=== PATIENT | female | born 1940 | race Caucasian/White ===

== ENCOUNTER 2020-02-23 10:14 | Outpatient (REF) | payer MEDICARE, SELFPAY ==
[2020-02-23 11:08] LABS: MANUAL DIFF FLAG NO
[2020-02-23 11:18] LABS: Basophils Percent Auto 0.2 % (0-2); Eosinophils Percent Auto 0.2 % (0-4); Hemoglobin 14.4 g/dl (12.0-16.0); Imm Gran Abs Auto 0.01 X10*3/uL (0.00-0.03); Imm Gran Pct Auto 0.2 % (0.0-0.4); Lymphocytes Percent Auto 31.6 % (20-40); Mean Corpuscular Hemoglobin 29.8 pg (27.0-33.0); Mean Corpuscular Volume 93.2 fL (80-98); Monocytes Absolute Auto 0.4 X10*3/uL (0.1-1.2); Monocytes Percent Auto 5.9 % (2-11); Neutrophils Percent Auto 61.9 % (45-73); Platelet Count 274 X10*3/uL (160-400); Red Blood Count 4.83 X10*6/uL (4.20-5.50); White Blood Count 6.4 X10*3/uL (4.8-10.8)
[2020-02-23 11:55] LABS: Alanine Aminotransferase 16 U/L (0-31); Albumin Level 4.5 g/dL (3.5-5.0); Alkaline Phosphatase 73 U/L (39-117); Anion Gap 12 (12-20); Aspartate Amino Transferase 18 U/L (5-31); Bilirubin Total 0.6 mg/dL (0.0-1.0); Blood Urea Nitrogen 19 mg/dL (9-16); Calcium 9.7 mg/dL (8.4-10.2); Carbon Dioxide 28 mmol/L (22-29); Chloride 105 mmol/L (96-108); Cholesterol 245 mg/dL; Estimated Glomerular Filt Rate > 60; Glucose Fasting 111 mg/dL (60-99); HDL Cholesterol 74 mg/dL; LDL Cholesterol Calculated 158 mg/dl; Potassium 4.3 mmol/l (3.3-5.1); Sodium 141 mmol/L (135-145); Total Protein 6.8 g/dL (6.5-8.0); Triglycerides 66 mg/dL
[2020-02-23 12:01] LABS: Thyroid Stimulating Hormone 0.82 uIU/mL (0.32-4.0)
== END 2020-02-23 10:15 | disposition home or self-care (01) ==
LOC: HO.LAB 10:14
PROVIDERS: PCP Internal Medicine; Visit Provider Internal Medicine
DX: Z00.00 Encounter for general adult medical examination without abnormal findings (principal); E11.9 Type 2 diabetes mellitus without complications; E03.9 Hypothyroidism, unspecified
CPT/HCPCS: 36415; 80053; 80061; 84443; 85025

== ENCOUNTER 2020-09-04 10:47 | Outpatient (REF) | payer MEDICARE, SELFPAY ==
--- NOTE | 2020-09-05 08:54 | MHC.AU.ANO ---
Adult Audiological Evaluation Date of Visit: 09/04/20 Home Health Rn Used: Not Applicable Reason for Appointment: Audiologic evaluation due to family's question of decreased hearing ability. Pamela reports she sometimes increases the volume of the television and her children comments she does not always understand speech properly. Does patient feel they have a hearing loss?: Unsure If Yes, Which Ear?: None Reported Has hearing been tested previously?: No Hearing Handicap Inventory: HHIE SCORE: 8 Based on HHIE score, patient has: No perceived hearing handicap Ear History: Family History of Hearing Loss?: Yes: Mother Ear used on the phone: Right Ear History of occupational noise exposure?: None reported History: History: No Medical History: Medical History: Unremarkable Medical History Medication List: Preservision Otoscopy: Right Ear: Small amount of non-occluding cerumen. Able to visualize tympanic membrane Left Ear: Small amount of non-occluding cerumen. Able to visualize tympanic membrane Tympanometry: Tympanometry performed due to: To assess integrity of the middle ear system Right Ear: Normal Middle Ear System (Type A) Left Ear: Normal Middle Ear System (Type A) Otoacoustic Emissions Frequency Range Used: 1.6-8 kHz Right Ear Results: Absent Emissions Analysis: Reduced/Absent emissions suggest cochlear dysfunction Left Ear Results: Absent Emissions Analysis: Reduced/Absent emissions suggest cochlear dysfunction Hearing Evaluation: Transducer(s) Used: Insert Earphones Bone Conduction Method: Conventional Audiometry Stimuli Used: Pure Tones Right Ear: Description of Hearing: Normal hearing at 250 Hz dropping to a moderately-severe sensorineural hearing loss at 2082-0254 Hz Left Ear: Description of Hearing: Normal hearing at 250 Hz dropping to a moderately-severe sensorineural hearing loss at 8534-4843 Hz Speech Recognition Threshold (SRT): Method Used: Monitored Live Voice Stimuli Used: Spondee Words Right Ear: 30 dB HL Left Ear: 30 dB HL Word Discrimination: Method: Recorded Lists Word Lists Used: NU-6 Right Ear: 84% at 70 dB HL Left Ear: 60% at 70 dB HL 80% at 80 dB HL QuickSIN: Binaural Quick SIN Test: 12 dB SNR Loss suggesting Pamela experiences a moderate degree of difficulty understanding speech with increasing levels of background noise Interpretation of Results: With the type and degree of Pamela's bilateral hearing loss she is likely able to hear , but have more difficulty with speech discrimination ability. This difficulty increases when background noise is present and when the person speaking is not facing Pamela or at a distance. Recommendations: 1) Discussed and provided a handout regarding Communication Strategies to share with the family and improve Pamela's ability to understand speech better. If having difficulty understanding the television, being within 6 feet from the television may help, or trying speakers connected to the television and placed next to Pamela's seat may be beneficial. 2) Discussed that based on Pamela's hearing test results, she is a candidate for binaural hearing aids. Pamela reports she feels she is not ready for amplification at this time and would like to try the communication strategies first. If interested in trying hearing aids within the next 6 months, she is advised to contact her insurance for covered hearing aid providers. 3) Audiologic re-evaluation is advised in one year. Will send a reminder card. Diagnosis: Primary Diagnosis: H90.3 Bilateral Sensorineural Hearing Loss Services Performed: Comprehensive Audiological Evaluation (CPT 47785) Diagnostic Otoacoustic Emissions (CPT 82683, 26+TC) Tympanometry (CPT 90284) Signature: Provider: Julianna Barrett, CCC-A
== END 2020-09-04 10:48 | disposition home or self-care (01) ==
LOC: HO.SH 10:47
PROVIDERS: Visit Provider Internal Medicine
DX: H90.3 Sensorineural hearing loss, bilateral (principal)
CPT/HCPCS: 92557; 92567; 92588

== ENCOUNTER 2020-12-25 08:21 | Day surgery (SDC) | payer MEDICARE, SELFPAY ==
[2020-12-15 15:17] VITALS: BMI 21.8
--- NOTE | 2020-12-21 13:48 | MHC.SHP ---
Pre-Procedural Eval Section A Date of Service: 12/21/20 The patient is an INPATIENT: No Changes since office visit: No Cold of Flu in the past 2 weeks, No New Medical Problems, No Changes in Medication and No Patient answered all questions The History & Physical has been completed within 30 days and I have reviewed it.: Yes Section B Chief Complaint: cataract right eye Allergies: Allergies Allergy/AdvReac Type Severity Reaction Status Date / Time No Known Allergies Allergy Mild N/A Verified 12/19/20 14:07 Plan Diagnosis/Plan: Unchanged I have reviewed the history and physical and performed a pertinent physical examination on my patient. No changes have occurred unless specified.
--- NOTE | 2020-12-22 13:26 | P.CONAN_ITS ---
Documented by User: Lupe Kennedy NP 12/22/20 13:26 HPI - Anesthesia Eval Consult details Narrative: 80yo F for Right Cataract Extraction IOL Insertion PCP cleared No prev cataract on record PMFSH Active Problems Active Problems: All Active Problems (Updated 12/19/20 @ 14:23 by Scott Krueger MD) Preop exam for internal medicine (Acute) Physical exam (Acute) Past Medical History Medical History COVID-19 vaccine series completed No pertinent past medical history Personal history of tuberculosis Family History Family History Father Past heart attack Mother Pneumonia Paternal Aunt Breast cancer Sister Breast cancer Surgical History Surgical History H/O rectal polypectomy History of hysterectomy Hx of colonoscopy Social History Social History Housing: House Are you a primary lead caregiver to a significant other at home: Yes (Spouse has Alzheimers) Do you presently have visiting nurse or other home services: No Alcohol intake: current Alcohol intake frequency: holidays/special occasions only Patient Tobacco Use Status: Never used Tobacco e-Cigarette/Vaping Use: Never Used Second Hand Smoke Exposure: No Use of substances other than those prescribed or required for medical reasons: No Have you been hit, kicked, punched, or otherwise hurt by someone within the past year? If so, by whom?: No Are you DNR?: No Advance Directives: No Advance Directives Information Provided: No Advance Directives on File: No Recently lost weight without trying: No Eating poorly because of decreased appetite: No Nutrition Risks: No Nutritional Risk service: No Current occupational status: retired Cognitive needs: No Hearing needs: No Vision needs: No Meds Allergies Allergy/AdvReac Type Severity Reaction Status Date / Time No Known Allergies Allergy Mild N/A Verified 12/25/20 09:37 Home Medications Medication Instructions Recorded Confirmed Last Taken Type vitamins A,C,J-xjlo-kldcnx 14,320 1 cap PO BID 12/15/20 12/15/20 Unknown History unit-226 mg-200 unit capsule (PreserVision AREDS) Exam Exam Date and Time: December 22, 2020 1326 Height,Weight and Vital Signs: Height 5 ft 4 in Weight 57.606 kg Assessment and Plan Assessment Anesthesia Assessment: Chart Reviewed Documented by User: Crystal Metz MD 12/25/20 09:48 [facility] Past Medical History Medical History COVID-19 vaccine series completed No pertinent past medical history Personal history of tuberculosis Family History Family History Father Past heart attack Mother Pneumonia Paternal Aunt Breast cancer Sister Breast cancer Surgical History Surgical History H/O rectal polypectomy History of hysterectomy Hx of colonoscopy Social History Social History Housing: House Are you a primary lead caregiver to a significant other at home: Yes (Spouse has Alzheimers) Do you presently have visiting nurse or other home services: No Alcohol intake: current Alcohol intake frequency: holidays/special occasions only Patient Tobacco Use Status: Never used Tobacco e-Cigarette/Vaping Use: Never Used Second Hand Smoke Exposure: No Use of substances other than those prescribed or required for medical reasons: No Have you been hit, kicked, punched, or otherwise hurt by someone within the past year? If so, by whom?: No Are you DNR?: No Advance Directives: No Advance Directives Information Provided: No Advance Directives on File: No Recently lost weight without trying: No Eating poorly because of decreased appetite: No Nutrition Risks: No Nutritional Risk service: No Current occupational status: retired Cognitive needs: No Hearing needs: No Vision needs: No Meds Allergies Allergy/AdvReac Type Severity Reaction Status Date / Time No Known Allergies Allergy Mild N/A Verified 12/25/20 09:37 Home Medications Medication Instructions Recorded Confirmed Last Taken Type vitamins A,C,E-covi-udcfrc 14,320 1 cap PO BID 12/15/20 12/15/20 Unknown History unit-226 mg-200 unit capsule (PreserVision AREDS) Exam Airway Mallampati Class: II TM Dist: >3cm Neck ROM: Full
[2020-12-25 09:42] VITALS: BP 161/60; PULSE 66; RESP 16; TEMP 36.1; O2SAT 97
[2020-12-25] MEDS: Lactated Ringers 500 ML 50 ML IV (10:04)
[2020-12-25] MEDS: Tetracaine HCl/PF 0.5% Oph Sol 4 ML DROPS 1 DROP EYE-RIGHT (10:10)
[2020-12-25] MEDS: Tropicamide 1 % Ophth Sol 3 ML BTL 1 DROP EYE-RIGHT ×3 (10:11→10:19)
[2020-12-25] MEDS: Phenylephrine HCL 2.5% Oph SoL 2 ML BOTTLE 1 DROP EYE-RIGHT ×3 (10:13→10:21)
--- NOTE | 2020-12-25 10:57 | HO.PNOPHT ---
Ophthalmology Procedure Procedure Date of Service: 12/25/20 Ophthalmology Viscoelastic: Healon Duet Dual Pack Pro Ophthalmology Lenses: TECNIS [id number] (16.5) Procedure Notes: PREOPERATIVE DIAGNOSIS: Decreased visual acuity right eye secondary to cataract POSTOPERATIVE DIAGNOSIS: Same PROCEDURE: Right cataract extraction with intraocular lens insertion SURGEON: Javy Rockwell M.D. ANESTHESIA: Topical/MAC ESTIMATED BLOOD LOSS: None COMPLICATIONS: None After obtaining informed consent, the patient was brought to the operating room suite and placed in the supine position. After adequate sedation per anesthesia, topical drops of Tetracaine were given to the right eye. The eye was then prepped and draped in the usual sterile fashion. The operating room microscope was then positioned over the operative eye and a lid speculum placed. A paracentesis was created. Viscoelastic was then instilled into the anterior chamber. A three plane incision was then created temporally, utilizing a 2.85 mm keratome. Capsulotomy forceps were then utilized to create a circular tear capsulotomy. Hydrodissection and hydrodelineation were carried out until adequate mobilization of the nucleus occurred. Phacoemulsification was then utilized to remove the dense central nucleus followed by removal of the cortical material utilizing the automated aspiration irrigation unit. Viscoelastic was instilled into the posterior capsular bag followed by placement of a posterior chamber intraocular lens without difficulty. The residual Viscoelastic was then removed utilizing the automated IA machine. The wound was checked and found to be watertight. The patient tolerated the procedure well and the lid speculum was removed. Intracameral injection of Vigamox 0.1 mL followed by a subtenon injection of Kenalog-40 0.2 mL were administered. The patient will be seen in the a.m.
[2020-12-25 11:20] VITALS: BP 136/54; PULSE 62; RESP 12; TEMP 36.1; O2SAT 100
== END 2020-12-25 11:35 | disposition home or self-care (01) ==
PROVIDERS: PCP Internal Medicine; Visit Provider Ophthalmology
PROC: (CPT 66985; principal; 2020-12-25 10:50)
DX: H25.811 Combined forms of age-related cataract, right eye (principal); H54.7 Unspecified visual loss; H35.3111 Nonexudative age-related macular degeneration, right eye, early dry stage; Z86.11 Personal history of tuberculosis
CPT/HCPCS: 66984; J2250; J3010; J3300; V2632

== ENCOUNTER 2021-01-08 08:29 | Day surgery (SDC) | payer MEDICARE, SELFPAY ==
[2020-12-15 15:22] VITALS: BMI 21.8
--- NOTE | 2021-01-05 08:23 | MHC.SHP ---
Pre-Procedural Eval Section A Date of Service: 01/05/21 The patient is an INPATIENT: No Changes since office visit: No Cold of Flu in the past 2 weeks, No New Medical Problems, No Changes in Medication and No Patient answered all questions The History & Physical has been completed within 30 days and I have reviewed it.: Yes Section B Chief Complaint: cataract left eye Allergies: Allergies Allergy/AdvReac Type Severity Reaction Status Date / Time No Known Allergies Allergy Mild N/A Verified 12/25/20 09:37 Plan Diagnosis/Plan: Unchanged I have reviewed the history and physical and performed a pertinent physical examination on my patient. No changes have occurred unless specified.
[2021-01-08 09:55] VITALS: BP 146/52; PULSE 64; RESP 16; TEMP 36.4; O2SAT 97
[2021-01-08] MEDS: Tetracaine HCl/PF 0.5% Oph Sol 4 ML DROPS 1 DROP EYE-LEFT (09:57)
[2021-01-08] MEDS: Lactated Ringers 500 ML 50 ML IVCONT (09:57)
[2021-01-08] MEDS: Tropicamide 1 % Ophth Sol 3 ML BTL 1 DROP EYE-LEFT ×3 (09:58→10:10)
[2021-01-08] MEDS: Phenylephrine HCL 2.5% Oph SoL 2 ML BOTTLE 1 DROP EYE-LEFT ×3 (10:03→10:14)
--- NOTE | 2021-01-08 10:52 | P.CONAN_ITS ---
HPI - Anesthesia Eval Consult details Narrative: left eye cataract PMFSH Active Problems Active Problems: All Active Problems (Updated 12/19/20 @ 14:23 by Scott Krueger MD) Physical exam (Acute) Preop exam for internal medicine (Acute) Past Medical History Medical History COVID-19 vaccine series completed No pertinent past medical history Personal history of tuberculosis Family History Family History Father Past heart attack Mother Pneumonia Paternal Aunt Breast cancer Sister Breast cancer Family history of problems with anesthesia: No Surgical History Surgical History (Updated 01/02/21 @ 09:59 by Jimena Brewster RN) H/O rectal polypectomy History of hysterectomy Hx of cataract extraction Hx of colonoscopy History of Problems with Anesthesia: No Social History Social History Housing: House Are you a primary healthcare account manager to a significant other at home: Yes (Spouse has Alzheimers) Do you presently have visiting nurse or other home services: No Alcohol intake: current Alcohol intake frequency: holidays/special occasions only Patient Tobacco Use Status: Never used Tobacco e-Cigarette/Vaping Use: Never Used Second Hand Smoke Exposure: No Use of substances other than those prescribed or required for medical reasons: No Have you been hit, kicked, punched, or otherwise hurt by someone within the past year? If so, by whom?: No Are you DNR?: No Advance Directives: No Advance Directives Information Provided: No Advance Directives on File: No Recently lost weight without trying: No Eating poorly because of decreased appetite: No Nutrition Risks: No Nutritional Risk Patient : No service: No Current occupational status: retired Cognitive needs: No Hearing needs: No Vision needs: No Meds Allergies Allergy/AdvReac Type Severity Reaction Status Date / Time No Known Allergies Allergy Mild N/A Verified 12/25/20 09:37 Active Medications: Current Medications Lactated Ringer's (Lr) 500 mls @ 50 mls/hr IVCONT .Q10H [place] Last Admin: 01/08/21 09:57 Dose: 50 mls/hr Documented by: Povidone Iodine (Povidone Iodine 5 % Ophth Soln 30 Ml Bottle) 1 appl EYE-LEFT PREOP PRN PRN Reason: Pre-Op Surgical Implant Prophy Home Medications Medication Instructions Recorded Confirmed Last Taken Type vitamins A,C,H-xfvz-rnecsr 14,320 1 cap PO BID 12/15/20 12/15/20 Unknown History unit-226 mg-200 unit capsule (PreserVision AREDS) Exam Exam Date and Time: January 08, 2021 1052 Height,Weight and Vital Signs: Height 5 ft 4 in Weight 57.606 kg Last Vital Signs Temp 97.6 F 01/08/21 09:55 Pulse 64 01/08/21 09:55 Resp 16 01/08/21 09:55 BP 146/52 H 01/08/21 09:55 Pulse Ox 97 01/08/21 09:55 Airway Mallampati Class: II TM Dist: >3cm Neck ROM: Full Loose/Missing/Broken Teeth: No Heart: rrr+s1s2 Lungs: cta b/l Assessment and Plan Assessment Anesthesia Assessment: Anesthesia Plan Discussed and Chart Reviewed Final Anesthetic Review Family History of Problems with Anesthesia: No History of Problems with Anesthesia: No NPO: Yes ASA Class: III Final Preanesthetic Review: No Changes in Pt Med Stat, Meds/Allgs Chart Reviewed, Consent Obtained/Reviewed and Anes Risks/Benef Reviewed Patient Risk: Intermediate Procedure Risk: Low Assessment/Block/Sedation in SS: Assess/Block/Sedation-SS Anesthetic Plan Anesthetic Plan: MAC: and Agree w/ Assess. and Plan Disposition: Standard PACU
--- NOTE | 2021-01-08 11:02 | HO.PNOPHT ---
Ophthalmology Procedure Procedure Date of Service: 01/08/21 Ophthalmology Viscoelastic: Healon Duet Dual Pack Pro Ophthalmology Lenses: TECEMMA [id number] (16) Procedure Notes: PREOPERATIVE DIAGNOSIS: Decreased visual acuity left eye secondary to cataract POSTOPERATIVE DIAGNOSIS: Same PROCEDURE: Left cataract extraction with intraocular lens insertion SURGEON: Javy Rockwell M.D. ANESTHESIA: Topical/MAC ESTIMATED BLOOD LOSS: None COMPLICATIONS: None After obtaining informed consent, the patient was brought to the operation room suite and placed in the supine position. After adequate sedation per anesthesia, topical drops of Tetracaine were given to the left eye. The eye was then prepped and draped in the usual sterile fashion. The operating room microscope was then positioned over the operative eye and a lid speculum placed. A paracentesis was created. Viscoelastic was then instilled into the anterior chamber. A three plane incision was then created temporally, utilizing a 2.85 mm keratome. Capsulotomy forceps were then utilized to create a circular tear capsulotomy. Hydrodissection and hydrodelineation were carried out until adequate mobilization of the nucleus occurred. Phacoemulsification was then utilized to remove the dense central nucleus followed by removal of the cortical material utilizing the automated aspiration irrigation unit. Viscoat elastic was instilled into the posterior capsular bag followed by placement of a posterior chamber intraocular lens without difficulty. The residual Viscoat elastic was then removed utilizing the automated IA machine. The wound was check and found to be watertight. The patient tolerated the procedure well and the lid speculum was removed. Intracameral injection of Vigamox 0.1 mL followed by a subtenon injection of Kenalog-40 0.2 mL were administered. The patient will be seen in the a.m.
[2021-01-08 11:25] VITALS: BP 125/54; PULSE 62; RESP 16; TEMP 36.2; O2SAT 97
== END 2021-01-08 11:36 | disposition home or self-care (01) ==
PROVIDERS: PCP Internal Medicine; Visit Provider Ophthalmology
PROC: (CPT 66985; principal; 2021-01-08 10:50)
DX: H25.812 Combined forms of age-related cataract, left eye (principal); H54.7 Unspecified visual loss; H35.3111 Nonexudative age-related macular degeneration, right eye, early dry stage
CPT/HCPCS: 66984; J2250; J3010; J3300; V2632

== ENCOUNTER 2021-04-25 09:52 | Outpatient (REF) | payer MEDICARE, SELFPAY ==
[2021-04-25 10:18] LABS: MANUAL DIFF FLAG NO
[2021-04-25 11:12] LABS: Basophils Percent Auto 0.1 % (0-2); Eosinophils Percent Auto 0.1 % (0-4); Hematocrit 45.6 % (37.0-47.0); Hemoglobin 14.6 g/dl (12.0-16.0); Imm Gran Abs Auto 0.02 X10*3/uL (0.00-0.03); Imm Gran Pct Auto 0.3 % (0.0-0.4); Lymphocytes Absolute Auto 2.3 X10*3/uL (1.2-4.9); Mean Corpuscular Hemoglobin 29.6 pg (27.0-33.0); Mean Corpuscular Volume 92.5 fL (80.0-98.0); Mean Platelet Volume 10.3 fL (9.4-12.3); Monocytes Absolute Auto 0.5 X10*3/uL (0.1-1.2); Monocytes Percent Auto 6.4 % (2-11); Neutrophils Absolute Auto 4.8 x10*3/uL (2.0-8.3); Neutrophils Percent Auto 63.1 % (45-73); Platelet Count 273 X10*3/uL (160-400); Red Blood Count 4.93 X10*6/uL (4.20-5.50); White Blood Count 7.6 X10*3/uL (4.8-10.8)
[2021-04-25 11:59] LABS: Alanine Aminotransferase 11 U/L (0-31); Albumin Level 4.5 g/dL (3.5-5.0); Alkaline Phosphatase 70 U/L (39-117); Anion Gap 13 (12-20); Aspartate Amino Transferase 18 U/L (5-31); Bilirubin Total 0.6 mg/dL (0.0-1.0); Blood Urea Nitrogen 26 mg/dL (9-16); Calcium 10.2 mg/dL (8.4-10.2); Carbon Dioxide 27 mmol/L (22-29); Chloride 107 mmol/L (96-108); Cholesterol 247 mg/dL; Estimated Glomerular Filt Rate > 60; Glucose Fasting 115 mg/dL (60-99); HDL Cholesterol 66 mg/dL; LDL Cholesterol Calculated 168 mg/dl; Potassium 4.9 mmol/L (3.3-5.1); Sodium 142 mmol/L (135-145); Thyroid Stimulating Hormone 0.77 uIU/mL (0.32-4.0); Total Protein 6.8 g/dL (6.5-8.0); Triglycerides 67 mg/dL
== END 2021-04-25 09:53 | disposition home or self-care (01) ==
LOC: HO.LAB 09:52
PROVIDERS: PCP Internal Medicine; Visit Provider Internal Medicine
DX: Z00.00 Encounter for general adult medical examination without abnormal findings (principal); Z13.0 Encounter for screening for diseases of the blood and blood-forming organs and certain disorders involving the immune mechanism
CPT/HCPCS: 36415; 80053; 80061; 84443; 85025

== ENCOUNTER 2021-05-16 09:33 | Outpatient (REF) | payer MEDICARE, SELFPAY ==
--- NOTE | ~2021-05-16 | US_ITS ---
EXAMINATION: US ABDOMEN COMPLETE CLINICAL INFORMATION: Abdominal pain. COMPARISON: Ultrasound abdomen 04/06/2014. TECHNIQUE: Real-time imaging of the abdominal viscera. FINDINGS: PANCREAS: Normal. ABDOMINAL AORTA: The proximal, mid, and distal segments are normal in caliber. INFERIOR VENA CAVA: Visualized portions are normal. LIVER: The liver is normal in size. The liver contour is normal. Parenchymal echogenicity is normal. There are 2 adjacent cysts versus one bilobed cyst in the right lobe. Measured as 2 adjacent cysts, these measure 3 x 2.6 x 3.4 cm and 2.7 x 2.5 x 2.8 cm. Cysts are minimally increased in size from March 2014. There is no intrahepatic biliary duct dilatation seen. GALLBLADDER: Normal. The gallbladder is physiologically distended without evidence of stones, sludge, polyps, wall thickening or pericholecystic fluid. COMMON BILE DUCT: Normal in caliber measuring 0.2 cm in diameter. RIGHT KIDNEY: Normal. No hydronephrosis. No renal calculi or focal parenchymal lesions. The kidney measures 9.5 cm in maximum dimension. LEFT KIDNEY: Normal. No hydronephrosis. No renal calculi or focal parenchymal lesions. The kidney measures 10.3 cm in maximum dimension. SPLEEN: Normal. The spleen measures 8.2 cm in maximum dimension. FREE FLUID: None. US/US abdomen complete IMPRESSION: Liver cysts minimally increased in size from 2014. Otherwise unremarkable exam.
== END 2021-05-16 09:34 | disposition home or self-care (01) ==
LOC: HO.US 09:33
PROVIDERS: Visit Provider Internal Medicine
DX: R10.9 Unspecified abdominal pain (principal)
CPT/HCPCS: 76700

== ENCOUNTER 2021-11-13 11:44 | Outpatient (REF) | payer MEDICARE, SELFPAY ==
--- NOTE | ~2021-11-13 | XR_ITS ---
EXAMINATION: XR CHEST CLINICAL INFORMATION: R53.83 - Other fatigue COMPARISON: None TECHNIQUE: 2 views of the chest were obtained. FINDINGS: There is mild hyperinflation upper zones. The lungs are clear. There is no airspace consolidation or groundglass opacity or effusion. The costophrenic sulci are well-defined. The heart is normal in size. The hilar and mediastinal contours are normal. No acute bony abnormality. XR/XR chest 2V IMPRESSION: Unremarkable examination.
[2021-11-13 12:04] LABS: MANUAL DIFF FLAG NO
--- NOTE | 2021-11-13 12:04 | ECG_ITS ---
Test Reason : Z13.9 ENCOUNTER FOR SCREENING Blood Pressure : / mmHG Vent. Rate : 078 BPM Atrial Rate : 078 BPM P-R Int : 152 ms QRS Dur : 084 ms QT Int : 362 ms P-R-T Axes : 077 -25 064 degrees QTc Int : 412 ms Normal sinus rhythm Normal ECG When compared with ECG of 19-MAR-2018 13:35, No significant change was found Referred By: Scott Krueger Electronically Signed By:NEGIN MCGARRY
[2021-11-13 13:22] LABS: Basophils Percent Auto 0.1 % (0-2); Eosinophils Percent Auto 0.1 % (0-4); Hematocrit 46.6 % (37.0-47.0); Hemoglobin 14.9 g/dl (12.0-16.0); Imm Gran Abs Auto 0.01 X10*3/uL (0.00-0.03); Imm Gran Pct Auto 0.1 % (0.0-0.4); Lymphocytes Absolute Auto 2.2 X10*3/uL (1.2-4.9); Lymphocytes Percent Auto 26.8 % (20-40); Mean Corpuscular Hemoglobin 29.2 pg (27.0-33.0); Mean Corpuscular Volume 91.2 fL (80.0-98.0); Mean Platelet Volume 10.6 fL (9.4-12.3); Monocytes Absolute Auto 0.4 X10*3/uL (0.1-1.2); Neutrophils Absolute Auto 5.6 x10*3/uL (2.0-8.3); Neutrophils Percent Auto 67.9 % (45-73); Platelet Count 253 X10*3/uL (160-400); Red Blood Count 5.11 X10*6/uL (4.20-5.50); Red Cell Distribution Width 12.9 % (11.0-16.0); White Blood Count 8.3 X10*3/uL (4.8-10.8)
[2021-11-13 14:02] LABS: Anion Gap 17 (12-20); Blood Urea Nitrogen 21 mg/dL (9-16); Calcium 10.1 mg/dL (8.4-10.2); Carbon Dioxide 23 mmol/L (22-29); Chloride 105 mmol/L (96-108); Estimated Glomerular Filt Rate 58; Glucose Random 116 mg/dL (60-115); Potassium 4.5 mmol/L (3.3-5.1); Sodium 140 mmol/L (135-145)
[2021-11-13 14:39] LABS: Thyroid Stimulating Hormone 0.68 uIU/mL (0.32-4.0)
== END 2021-11-13 11:45 | disposition home or self-care (01) ==
LOC: HO.XRAY 11:44
PROVIDERS: PCP Internal Medicine; Visit Provider Internal Medicine
DX: Z13.0 Encounter for screening for diseases of the blood and blood-forming organs and certain disorders involving the immune mechanism (principal); Z13.9 Encounter for screening, unspecified; R51.9 Headache, unspecified; E03.9 Hypothyroidism, unspecified; R53.83 Other fatigue
CPT/HCPCS: 36415; 71046; 80048; 84443; 85025; 93005

== ENCOUNTER 2022-01-21 10:44 | Outpatient (REF) | payer MEDICARE, SELFPAY | END 2022-01-21 10:45 | disposition home or self-care (01) | LOC: HO.SH 10:44 | PROVIDERS: Visit Provider Internal Medicine | DX: Z01.118 Encounter for examination of ears and hearing with other abnormal findings (principal); H90.3 Sensorineural hearing loss, bilateral | CPT/HCPCS: 92557; 92567 ==

== ENCOUNTER 2022-03-28 13:34 | Outpatient (REF) | payer SELFPAY ==
--- NOTE | 2022-04-01 08:31 | MHC.AU.HA1 ---
Hearing Aid Evaluation Date of Visit: 03/28/22 Historical Information: Description of Hearing: Borderline/mild sloping to moderately-severe sensorineural hearing loss Summary: Hearing aid evaluation- Hearing aid options were discussed. Ms. Torres describes her lifestyle as somewhat quiet, but is active with her family. She has significant difficulty hearing in background noise. She would prefer an ITC style. She also would like rechargeable for ease of use. She has an iPhone, but is unsure if she wants it paired to the phone. Discussed the potential features of the maxx, including Fall Alert and volume control. Hearing Aid Prescription: Based on the individual?s shared listening needs, communication environments, dexterity, desire for connectivity, and personal preferences, the following prescription for amplification has been made: Right ear: Make, Model, Color: Radha GodTubev AI 2000 ITC-R Battery Size: Rechargeable Left ear: Make, Model, Color: Radha Nifty After Fifty AI 1999 ITC-R Battery Size: Rechargeable Action Taken/Action Needed: [place] Impressions Taken Hearing Instrument Fitting to be scheduled when materials arrive Paid $350 fitting fee Primary Diagnosis: H90.3 Bilateral Sensorineural Hearing Loss Signature: Provider: Pau Zhang, CCC-A
== END 2022-03-28 13:35 | disposition home or self-care (01) ==
LOC: HO.HAP 13:34
PROVIDERS: Visit Provider Internal Medicine
DX: Z46.1 Encounter for fitting and adjustment of hearing aid (principal); H90.3 Sensorineural hearing loss, bilateral
CPT/HCPCS: 92590

== ENCOUNTER 2022-04-02 12:27 | Outpatient (REF) | payer MEDICARE, SELFPAY ==
--- NOTE | ~2022-04-02 | MM_ITS ---
EXAMINATION: MM SCREENING DIGITAL BREAST TOMOSYNTHESIS, BILATERAL CLINICAL INFORMATION: Screening. Asymptomatic. The lifetime risk of breast cancer based on the Tyrer-Cuzick Model is 2%. COMPARISON: Mammography: June 30, 2018 and studies dating back to May 01, 2015 TECHNIQUE: Digital breast tomosynthesis is performed in both the craniocaudal and mediolateral oblique views along with computer-aided detection (CAD). Synthesized 2D images are generated from the tomosynthesis. FINDINGS: There are scattered areas of fibroglandular density (ACR BI-RADS breast composition Category b). There are no new significant masses, abnormal calcifications, or other abnormalities. There is stable or decreased size of bilateral densities. There is an increase in what appears to be some vascular calcifications about the right breast. MM/MM tomosynthesis screening BI IMPRESSION: No mammographic evidence of malignancy. ASSESSMENT: BI-RADS 2: Benign RECOMMENDATION: Routine annual mammography screening. This patient's information was entered into a reminder system with a target due date for their next mammogram.
== END 2022-04-02 12:28 | disposition home or self-care (01) ==
LOC: HO.MAMMO 12:27
PROVIDERS: PCP Internal Medicine; Visit Provider Internal Medicine
DX: Z12.31 Encounter for screening mammogram for malignant neoplasm of breast (principal)
CPT/HCPCS: 77063; 77067

== ENCOUNTER 2022-05-03 12:56 | Outpatient (REF) | payer SELFPAY | END 2022-05-03 12:57 | disposition home or self-care (01) | LOC: HO.HAP 12:56 | PROVIDERS: Visit Provider Internal Medicine | DX: Z46.1 Encounter for fitting and adjustment of hearing aid (principal); H90.3 Sensorineural hearing loss, bilateral | CPT/HCPCS: V5259; V5299 ==

== ENCOUNTER 2022-05-27 08:44 | Outpatient (REF) | payer SELFPAY | END 2022-05-27 08:45 | disposition home or self-care (01) | LOC: HO.HAP 08:44 | PROVIDERS: Visit Provider Internal Medicine | DX: Z13.89 Encounter for screening for other disorder (principal) ==

== ENCOUNTER → 2022-06-21 08:54 | Outpatient (BNVA) | payer MEDICARE, SELFPAY | PROVIDERS: PCP Internal Medicine; Referring Provider Internal Medicine; Visit Provider Internal Medicine Cardiovascular Disease | DX: R07.89 Other chest pain (principal) | CPT/HCPCS: 93005; 99202 ==

== ENCOUNTER → 2022-07-04 07:59 | Outpatient (REF) | payer MEDICARE, SELFPAY ==
--- NOTE | 2022-07-04 08:03 | CA_ITS ---
Acquisition Time: 2022-07-04 09:01:47 Total Exercise Time: 00:01:48 Test Indications: R07.89 - Other chest pain Medications: Protocol: HILLARY Max HR: 139 BPM 99% of Pred: 140 BPM Max BP: 174/058 mmHG Max Work Load: 3.3 METS Exercise stress test with exercise 1 min 48 sec of Hillary stage 1, achieving 99% MPHR with mild sob, with 5/10 left chest ache at baseline which did not change with exercise or recovery, with isolated PACs and PVCs, with normotensive response to exercise, without EKG changes at her acheived workload. Test reviewed with Dr Nicole. Referred By: Gregorio Robertson Overread By: ALEXIS REBOLLEDO
== END ==
LOC: HO.CARD 07:59
PROVIDERS: PCP Internal Medicine; Visit Provider Internal Medicine Cardiovascular Disease
DX: R07.89 Other chest pain (principal)
CPT/HCPCS: 93017

== ENCOUNTER → 2022-07-29 08:50 | Outpatient (REF) | payer MEDICARE, SELFPAY ==
--- NOTE | ~2022-07-29 | NM_ITS ---
Myocardial perfusion study Indication: Abnormal stress test evaluate for myocardial ischemia Technique: The patient was brought in for a Lexiscan perfusion study on 07/29/2022. Patient performed low-level exercise and was injected 0.4 mg of Lexiscan intravenously. Within a minute of injection, 25 mCi of sestamibi was given intravenously. Images were obtained using the SPECT gamma camera interlaced with the gating device. Images were obtained in supine position. Resting perfusion study was performed on 08/05/2022. Patient was administered 25 mCi of sestamibi intravenously at rest. Images were then obtained in supine position. Images obtained with and without CT attenuation. Total DLP 97 mGy-cm. Images were processed with the software and compared side to side in short axis, horizontal long axis and vertical long axis views. Findings: The stress perfusion study showed non attenuated images show overall normal uptake in the apical portion of the lateral wall and mildly reduced uptake in the inferolateral wall of the LV myocardium. Remainder of the LV myocardium is normally perfused. Attenuation corrected images show mildly to moderately reduced uptake in the basal and mid inferolateral wall of the LV myocardium.. The gated study shows normal LV systolic function with calculated LVEF of 62%. LV cavity is normal in size. The gated study shows normal systolic wall thickening and contraction of segments. Resting study shows attenuated images show improved uptake in the inferolateral wall of the LV myocardium. Gating at rest reveals normal systolic wall motion with ejection fraction at greater than 70%. The findings are consistent with mild intensity inferolateral wall ischemia. NM/NM cardiolite stress test Impression: 1. Myocardial perfusion imaging study shows mild intensity inferolateral wall ischemia 2. Gated LVEF is 62% 3. Transient ischemic dilatation not present EKG is nondiagnostic for ischemia
--- NOTE | 2022-07-29 08:54 | CA_ITS ---
Acquisition Time: 2022-07-29 09:14:09 Total Exercise Time: 00:02:00 Test Indications: CHEST PAIN Medications: Protocol: LEXISCAN Max HR: 129 BPM 92% of Pred: 140 BPM Max BP: 128/062 mmHG Max Work Load: 1.0 METS Pharmacological stress test with Lexiscan injection, while sitting and kicking her legs, without anginal symptoms, with isolated PACs and PVCs, with normotensive response to injection, with nondiagnostic EKG for ischemia. In recovery she was treated with Aminophylline 75mg IVP to reverse lexiscan. Nuclear images pending. Test reviewed with Dr Cerrato. Referred By: Herminia Menard Overread By: HERMINIA MENARD
--- NOTE | 2022-07-29 08:54 | HM_ITS ---
Conclusion: 1. Patient was monitored for total period of 6 days and 22 hours 2. Baseline was normal sinus rhythm with average heart of 64 beats per minute 3. Frequent sinus bradycardia with 54% of time heart rate below 60 beats per minute with no significant pauses 4. Occasional PACs with total burden of 0.75% 5. No patient reported events MTDD
== END ==
LOC: HO.CARD 08:50
PROVIDERS: PCP Internal Medicine; Visit Provider Nurse Practitioner Family
DX: R07.89 Other chest pain (principal); R94.39 Abnormal result of other cardiovascular function study
CPT/HCPCS: 78452; 93017; 93242; A9500; J0280; J2785

== ENCOUNTER 2022-11-15 10:06 | Outpatient (AMB) | payer MEDICARE, SELFPAY ==
[2022-11-15 10:07] VITALS: BP 138/76; PULSE 85; O2SAT 97; BMI 23.0
--- NOTE | 2022-11-15 10:07 | MHC.PC.OV ---
Vital Signs 11/15/22 10:07 Height 5 ft 4 in Weight 134 lb BMI 23.0 BP 138/76 Blood Pressure Location Lt brachial Position Sitting Pulse 85 Pulse Source Pulse Oximeter Pulse Oximetry (%) 97 Oxygen Delivery Method Room Air Intake Visit Reasons: ongoing health issues Maintenance Department Technician: Not Required per policy Accompanied by: Self / Same As Patient Allergies No Known Allergies Allergy (Mild, Verified 11/15/22 10:08) N/A Medication List - Last Reconciled 11/15/22 by Scott Krueger MD vitamins A,C,G-dzpj-pjyvwb 4,296 mcg-226 mg-90 mg (PreserVision AREDS) 1 cap PO BID Tobacco use date assessed: 04/26/22 Fall risk assessment: No Falls in past year Last assessed Fall Risk: 11/15/22 Dental Screening Dental Screen Date: 11/15/22 Did you have a dental visit in the last 12 months?: Yes Did you have a dental problem in the last 6 months where you did not have access to dental care?: No Was dental information given to patient?: Patient has dentist HPI ongoing health issues HPI Details difficulty sleeping; 2 months ago PFSH Medical History COVID-19 vaccine series completed No pertinent past medical history Personal history of tuberculosis Surgical History Hx of cataract extraction Hx of colonoscopy H/O rectal polypectomy History of hysterectomy Family History Father Past heart attack Mother Pneumonia Paternal Aunt Breast cancer Sister Breast cancer Social History Housing: House Are you a primary urgent care nurse practitioner to a significant other at home: Yes (Spouse has Alzheimers) Do you presently have visiting nurse or other home services: No Alcohol intake: current Alcohol intake frequency: holidays/special occasions only Patient Tobacco Use Status: Never used Tobacco e-Cigarette/Vaping Use: Never Used Second Hand Smoke Exposure: No service: No Current occupational status: retired Cognitive needs: No Hearing needs: No Vision needs: No Questionnaire PHQ-9 Over the last 2 weeks, how often have you been bothered by any of the following problems? 1. Little interest or pleasure in doing things: not at all 2. Feeling down, depressed, or hopeless: not at all 3. Trouble falling or staying asleep, or sleeping too much: not at all 4. Feeling tired or having little energy: not at all 5. Poor appetite or overeating: not at all 6. Feeling bad about yourself - or that you are a failure or have let yourself or your family down: not at all 7. Trouble concentrating on things, such as reading the newspaper or watching television: not at all 8. Moving or speaking so slowly that other people could have noticed. Or the opposite - being so fidgety or restless that you have been moving around a lot more than usual: not at all 9. Thoughts that you would be better off or of hurting yourself in some way: not at all Total score: 0 Depression Screening Interpretation: Negative 82415 - PHQ-9 Billing: Yes Source: Developed by Drs. Leandro Mckeon, Annie Mcnally, Aryan Clay and colleagues, with an educational hemanth from [employer]. Thrive Questionnaire Date Thrive assessed: 04/26/22 AUDIT C Alcohol Use Questionnaire (AUDIT-C) 1. How often do you have a drink containing alcohol?: Never Total Score: 0 Score Reviewed/Action Taken: Yes TATYANA-7 AMB Questionnaire TATYANA-7 Date TATYANA - 7 assessed: 04/26/22 Source: Developed by Drs. Leandro Mckeon, Aryan Ramirez and colleagues, with an educational hemanth from [employer]. Review of Systems Const Denies chills, Denies headache(s) and Denies weight loss ENT Denies headache(s) Card Denies chest pain, Denies syncope, Denies irregular heart rhythm and Denies dyspnea Resp Denies chest congestion, Denies cough and Denies dyspnea GI Denies abdominal pain, Denies change in stool character, Denies nausea and Denies vomiting Musc Denies deformity and Denies joint swelling Neuro Denies syncope and Denies headache(s) Physical exam (Primary Care) Vital Signs: Last Vital Signs Pulse 85 11/15/22 10:07 BP 138/76 11/15/22 10:07 Pulse Ox 97 11/15/22 10:07 Oxygen Delivery Method Room Air 09/22/23 10:07 BMI result Body Mass Index 23.0 Tobacco/Smoking Status: Tobacco use Status Tobacco use date assessed 04/26/22 11/15/22 10:11 Patient Tobacco Use Status Never used Tobacco 11/15/22 10:11 e-Cigarette/Vaping Use Never Used 11/15/22 10:11 PHQ-9: PHQ-9 Score PHQ-9: Total score 0 11/15/22 10:11 Depression Screening Interpretation: Negative Thrive Assessment: Date of Thrive Assessment Date Thrive assessed 04/26/22 11/15/22 10:11 Const General: cooperative, comfortable, no acute distress and alert Neck Neck: Yes no lymphadenopathy Thyroid: Thyroid normal Resp Effort & Inspection: normal respiratory effort Auscultation: clear to auscultation bilaterally Percussion: percussion normal Cardio Jugular venous distension: no JVD Palpation: normal PMI Rate: regular rate Rhythm: regular rhythm Heart sounds: S1 normal heart sound present and S2 normal heart sound present GI Inspection: Yes normal to inspection Palpation (GI): No hepatosplenomegaly present Skin General skin exam: no rashes or lesions noted Extrem General: Yes no clubbing, cyanosis or edema Assessment and Plan Assessment & Plan (1) Insomnia: Code(s): G47.00 - Insomnia, unspecified Plan: rx and lab Orders: Orders Complete Blood Count Auto Diff Today D64.9 - Anemia, unspecified Comprehensive [place]. Panel Fast Today N28.9 - Disorder of kidney and ureter, unspecified Thyroid Stimulating Hormone Today E03.9 - Hypothyroidism, unspecified Lipid Panel Today E78.5 - Hyperlipidemia, unspecified Medications: New zolpidem 5 mg PO BEDTIME PRN 30 tabs 2RF sleep Coding Level of Care Code Est Pt Level 3 (57135) Diagnoses Insomnia G47.00
== END 2022-11-15 10:33 | disposition home or self-care (01) ==
PROVIDERS: PCP Internal Medicine; Visit Provider Internal Medicine
DX: G47.00 Insomnia, unspecified (principal)
CPT/HCPCS: 99213

== ENCOUNTER 2022-11-26 08:38 | Outpatient (REF) | payer SELFPAY | END 2022-11-26 08:39 | disposition home or self-care (01) | LOC: HO.HAP 08:38 | PROVIDERS: Visit Provider Internal Medicine | DX: Z46.1 Encounter for fitting and adjustment of hearing aid (principal); H90.3 Sensorineural hearing loss, bilateral | CPT/HCPCS: V5267 ==

== ENCOUNTER 2023-03-31 09:37 | Outpatient (REF) | payer MEDICARE, SELFPAY ==
[2023-03-31 09:57] LABS: MANUAL DIFF FLAG NO
[2023-03-31 10:16] LABS: Basophils Percent Auto 0.1 % (0-2); Eosinophils Absolute Auto 0.1 X10*3/uL (0.0-0.4); Eosinophils Percent Auto 0.7 % (0-4); Hematocrit 45.7 % (37.0-47.0); Hemoglobin 15.2 g/dl (12.0-16.0); Imm Gran Abs Auto 0.02 X10*3/uL (0.00-0.03); Imm Gran Pct Auto 0.3 % (0.0-0.4); Lymphocytes Absolute Auto 2.5 X10*3/uL (1.2-4.9); Lymphocytes Percent Auto 35.9 % (20-40); Mean Corpuscular HGB Conc 33.3 g/dl (31.0-35.0); Mean Corpuscular Volume 90.1 fL (80.0-98.0); Mean Platelet Volume 9.7 fL (9.4-12.3); Monocytes Absolute Auto 0.4 X10*3/uL (0.1-1.2); Monocytes Percent Auto 5.9 % (2-11); Neutrophils Percent Auto 57.1 % (45-73); Platelet Count 266 X10*3/uL (160-400); Red Blood Count 5.07 X10*6/uL (4.20-5.50); Red Cell Distribution Width 12.9 % (11.0-16.0); White Blood Count 6.9 X10*3/uL (4.8-10.8)
[2023-03-31 10:56] LABS: Alanine Aminotransferase 15 U/L (0-31); Albumin Level 4.4 g/dL (3.5-5.0); Alkaline Phosphatase 72 U/L (39-117); Anion Gap 16 (12-20); Aspartate Amino Transferase 20 U/L (5-31); Bilirubin Total 0.5 mg/dL (0.0-1.0); Blood Urea Nitrogen 22 mg/dL (9-16); Carbon Dioxide 26 mmol/L (22-29); Chloride 106 mmol/L (96-108); Cholesterol 198 mg/dL (<200); Estimated Glomerular Filt Rate 56; Glucose Fasting 120 mg/dL (60-99); HDL Cholesterol 57 mg/dL (>40); LDL Cholesterol Calculated 127 mg/dL (<100); Potassium 4.5 mmol/L (3.3-5.1); Sodium 143 mmol/L (135-145); Total Protein 6.8 g/dL (6.5-8.0); Triglycerides 70 mg/dL (<150)
[2023-03-31 11:05] LABS: Thyroid Stimulating Hormone 1.59 uIU/mL (0.32-4.0)
== END 2023-03-31 09:38 | disposition home or self-care (01) ==
LOC: HO.LAB 09:37
PROVIDERS: PCP Internal Medicine; Visit Provider Internal Medicine
DX: E78.5 Hyperlipidemia, unspecified (principal); D64.9 Anemia, unspecified; N28.9 Disorder of kidney and ureter, unspecified; E03.9 Hypothyroidism, unspecified
CPT/HCPCS: 36415; 80053; 80061; 84443; 85025

== ENCOUNTER 2023-04-29 09:49 | Outpatient (AMB) | payer MEDICARE, SELFPAY ==
[2023-04-29 09:55] VITALS: BP 132/68; PULSE 85; O2SAT 92; BMI 22.8
--- NOTE | 2023-04-29 09:55 | MHC.PC.OV ---
Vital Signs 04/29/23 09:55 Height 5 ft 4 in Weight 133 lb BMI 22.8 BP 132/68 Blood Pressure Location Lt brachial Position Sitting Pulse 85 Pulse Source Pulse Oximeter Pulse Oximetry (%) 92 Oxygen Delivery Method Room Air Intake Visit Reasons: Annual Health Program Analyst Required: No Lost And Found Clerk: Not Required per policy Accompanied by: Self / Same As Patient Allergies No Known Allergies Allergy (Mild, Verified 04/29/23 09:56) N/A Tobacco use date assessed: 04/29/23 Fall risk assessment: No Falls in past year Last assessed Fall Risk: 04/29/23 Dental Screening Dental Screen Date: 04/29/23 Did you have a dental visit in the last 12 months?: Yes Did you have a dental problem in the last 6 months where you did not have access to dental care?: No Was dental information given to patient?: Patient has dentist HPI Annual HPI Details healthy [facility] Medical History COVID-19 vaccine series completed No pertinent past medical history Personal history of tuberculosis Surgical History Hx of cataract extraction Hx of colonoscopy H/O rectal polypectomy History of hysterectomy Family History Father Past heart attack Mother Pneumonia Paternal Aunt Breast cancer Sister Breast cancer Social History Housing: House Are you a primary career developer to a significant other at home: Yes (Spouse has Alzheimers) Do you presently have visiting nurse or other home services: No Alcohol intake: current Alcohol intake frequency: holidays/special occasions only Patient Tobacco Use Status: Never used Tobacco e-Cigarette/Vaping Use: Never Used Second Hand Smoke Exposure: No service: No Current occupational status: retired Cognitive needs: No Hearing needs: No Vision needs: No Questionnaire PHQ-9 Over the last 2 weeks, how often have you been bothered by any of the following problems? 1. Little interest or pleasure in doing things: not at all 2. Feeling down, depressed, or hopeless: not at all 3. Trouble falling or staying asleep, or sleeping too much: not at all 4. Feeling tired or having little energy: not at all 5. Poor appetite or overeating: not at all 6. Feeling bad about yourself - or that you are a failure or have let yourself or your family down: not at all 7. Trouble concentrating on things, such as reading the newspaper or watching television: not at all 8. Moving or speaking so slowly that other people could have noticed. Or the opposite - being so fidgety or restless that you have been moving around a lot more than usual: not at all 9. Thoughts that you would be better off or of hurting yourself in some way: not at all Total score: 0 Depression Screening Interpretation: Negative Depression Screening Done: Yes 28156 - PHQ-9 Billing: Yes Source: Developed by Drs. Leandro Mckeon, Annie Mcnally, Aryan Clay and colleagues, with an educational hemanth from [employer]. Thrive Questionnaire Date Thrive assessed: 04/29/23 I am a: Patient What is your living situation today?: I have a steady place to live Within the past 12 months, did the food you bought not last and you didn't have the money to get more?: Never true Within the past 12 months, did you worry whether your food would run out before you got money to buy more?: Never true Do you have trouble paying for medicines?: No Do you have trouble getting transportation to medical appointments?: No Do you have trouble paying your heating and electricity bill?: No Do you have trouble taking care of your child, family member or friend?: No Do you have trouble with day-to-day activities such as bathing, preparing meals, shopping, managing finances, etc.?: No Are you currently unemployed and looking for a job?: No Are you interested in more education?: No Please select the resources that you would like help with: None THRIVE Score: 0 AUDIT C Alcohol Use Questionnaire (AUDIT-C) 1. How often do you have a drink containing alcohol?: Never Total Score: 0 Score Reviewed/Action Taken: Yes TATYANA-7 AMB Questionnaire TATYANA-7 Date TATYANA - 7 assessed: 04/29/23 Feeling nervous, anxious, or on edge: 0 = Not at all Not being able to stop or control worryin = Not at all Worrying too much about different things: 0 = Not at all Trouble relaxin = Not at all Being so restless that it is hard to sit still: 0 = Not at all Becoming easily annoyed or irritable: 0 = Not at all Feeling afraid as if something awful might happen: 0 = Not at all Total TATYANA-7 score (0-4 normal; 5-9 mild; 10-14 moderate; 15-21 severe): 0 Source: Developed by Drs. Leandro Mckeon, Annie Mcnally, Aryan Clay and colleagues, with an educational hemanth from [employer]. TATYANA-7 Assessment Billing TATYANA-7 Assessment Tool: TATYANA-7 Assessment 53723 Review of Systems Const Denies chills, Denies fatigue, Denies headache(s) and Denies weight loss Eyes Denies change in vision, Denies diplopia and Denies eye pain ENT Denies vertigo, Denies dizziness, Denies headache(s) and Denies nasal discharge Card Denies chest pain, Denies rapid heart rate and Denies dyspnea on exertion Resp Denies chest congestion, Denies cough, Denies pain with cough and Denies dyspnea on exertion GI Denies abdominal pain, Denies hematochezia and Denies change in bowel habits Musc Denies myalgias, Denies arthralgias and Denies joint swelling Skin/Breast Denies lesions and Denies unusual bruising Neuro Denies vertigo, Denies dizziness, Denies headache(s) and Denies focal weakness Endo Denies fatigue Physical exam (Primary Care) Vital Signs: Last Vital Signs Pulse 85 04/29/23 09:55 BP 132/68 04/29/23 09:55 Pulse Ox 92 04/29/23 09:55 Oxygen Delivery Method Room Air 04/29/23 09:55 BMI result Body Mass Index 22.8 Tobacco/Smoking Status: Tobacco use Status Tobacco use date assessed 04/29/23 04/29/23 09:57 Patient Tobacco Use Status Never used Tobacco 04/29/23 09:57 e-Cigarette/Vaping Use Never Used 04/29/23 09:57 PHQ-9: PHQ-9 Score PHQ-9: Total score 0 04/29/23 09:57 Depression Screening Interpretation: Negative Thrive Assessment: Date of Thrive Assessment Date Thrive assessed 04/29/23 04/29/23 09:57 Const General: cooperative, healthy appearing and no acute distress Orientation/consciousness: oriented to person, oriented to place and oriented to time HENMT Head: Yes normal to inspection, Yes normocephalic and Yes atraumatic Mouth: Normal oral and palatal mucosa present and tongue normal Throat: Yes posterior oropharynx normal and Yes uvula midline Eyes General: appearance normal, both eyes and all related structures Neck Neck: Yes normal visual inspection, Yes full ROM and Yes no lymphadenopathy Thyroid: Thyroid normal Carotids: normal carotid upstroke Chest Chest palpation & inspection: normal inspection of the chest Resp Effort & Inspection: normal respiratory effort and able to speak in complete sentences Auscultation: clear to auscultation bilaterally Cardio Jugular venous distension: no JVD Palpation: normal PMI Rate: regular rate Rhythm: regular rhythm Heart sounds: S1 normal heart sound present and S2 normal heart sound present GI Inspection: Yes normal to inspection Palpation (GI): Soft to palpation and No hepatosplenomegaly present Auscultation: normal bowel sounds General: Yes no CVA tenderness Back/Spine/Pelvis Back: no CVA tenderness Skin General skin exam: no rashes or lesions noted Neuro General: oriented to person, oriented to place and oriented to time Extrem General: Yes normal to inspection and Yes full ROM Assessment and Plan Assessment & Plan (1) Physical exam: Code(s): Z00.00 - Encounter for general adult medical examination without abnormal findings Plan: healthy Coding Level of Care Code Est Pt Prev Care >65y(79884) Diagnoses Physical exam Z00.00 Additional Codes TATYANA-7 Assessment Billing - TATYANA-7 Assessment Tool: TATYANA-7 Assessment [id number] ([id number])
== END 2023-04-29 10:19 | disposition home or self-care (01) ==
PROVIDERS: PCP Internal Medicine; Visit Provider Internal Medicine
DX: Z00.00 Encounter for general adult medical examination without abnormal findings (principal)
CPT/HCPCS: 99397

== ENCOUNTER 2023-09-10 10:57 | Outpatient (AMB) | payer MEDICARE, SELFPAY ==
[2023-09-10 10:57] VITALS: BP 138/70; PULSE 80; BMI 22.8
--- NOTE | 2023-09-10 10:57 | A.OFFPC_ITS ---
Vital Signs 09/10/23 10:57 Height 5 ft 4 in Weight 133 lb 0.4 oz BMI 22.8 BP 138/70 Blood Pressure Location Lt brachial Position Sitting Pulse 80 Pulse Source Pulse Oximeter Oxygen Delivery Method Room Air Intake Visit Reasons: go over test results from insurance doctor Core Rescuer Required: No Allergies No Known Allergies Allergy (Mild, Verified 09/10/23 10:58) N/A Medication List - Last Reconciled 09/10/23 by Scott Krueger MD oxybutynin chloride 5 mg PO DAILY vitamins A,C,A-hpsw-ymlioj 4,296 mcg-226 mg-90 mg (PreserVision AREDS) 1 cap PO BID Tobacco use date assessed: 04/29/23 Fall risk assessment: No Falls in past year Last assessed Fall Risk: 09/10/23 Dental Screening Dental Screen Date: 04/29/23 HPI go over test results from insurance doctor HPI Details calf cramps while walking consistent with claudication PFSH Medical History COVID-19 vaccine series completed No pertinent past medical history Personal history of tuberculosis Surgical History Hx of cataract extraction Hx of colonoscopy H/O rectal polypectomy History of hysterectomy Family History Father Past heart attack Mother Pneumonia Paternal Aunt Breast cancer Sister Breast cancer Social History Housing: House Are you a primary care program director to a significant other at home: Yes (Spouse has Alzheimers) Do you presently have visiting nurse or other home services: No Alcohol intake: current Alcohol intake frequency: holidays/special occasions only Patient Tobacco Use Status: Never used Tobacco e-Cigarette/Vaping Use: Never Used Second Hand Smoke Exposure: No service: No Current occupational status: retired Cognitive needs: No Hearing needs: No Vision needs: No Questionnaire Thrive Questionnaire Date Thrive assessed: 04/29/23 AUDIT C Alcohol Use Questionnaire (AUDIT-C) 1. How often do you have a drink containing alcohol?: Never Total Score: 0 Score Reviewed/Action Taken: Yes TATYANA-7 AMB Questionnaire TATYANA-7 Date TATYANA - 7 assessed: 04/29/23 Source: Developed by Drs. Leandro Mckeon, Annie Mcnally, Aryan Clay and colleagues, with an educational hemanth from [employer]. Review of Systems Const Denies chills, Denies headache(s) and Denies weight loss ENT Denies headache(s) Card Denies chest pain, Denies syncope, Denies irregular heart rhythm and Denies dyspnea Resp Denies chest congestion, Denies cough and Denies dyspnea GI Denies abdominal pain, Denies change in stool character, Denies nausea and Denies vomiting Musc Denies deformity and Denies joint swelling Neuro Denies syncope and Denies headache(s) Physical exam (Primary Care) Vital Signs: Last Vital Signs Pulse 80 09/10/23 10:57 BP 138/70 09/10/23 10:57 Oxygen Delivery Method Room Air 09/10/23 10:57 BMI result Body Mass Index 22.8 Tobacco/Smoking Status: Tobacco use Status Tobacco use date assessed 04/29/23 09/10/23 10:58 Patient Tobacco Use Status Never used Tobacco 09/10/23 10:58 e-Cigarette/Vaping Use Never Used 09/10/23 10:58 Thrive Assessment: Date of Thrive Assessment Date Thrive assessed 04/29/23 09/10/23 10:58 Const General: cooperative, comfortable, no acute distress and alert Neck Neck: Yes no lymphadenopathy Thyroid: Thyroid normal Resp Effort & Inspection: normal respiratory effort Auscultation: clear to auscultation bilaterally Percussion: percussion normal Cardio Jugular venous distension: no JVD Palpation: normal PMI Rate: regular rate Rhythm: regular rhythm Heart sounds: S1 normal heart sound present and S2 normal heart sound present GI Inspection: Yes normal to inspection Palpation (GI): No hepatosplenomegaly present Skin General skin exam: no rashes or lesions noted Extrem General: Yes no clubbing, cyanosis or edema Assessment and Plan Assessment & Plan (1) Claudication: Code(s): I73.9 - Peripheral vascular disease, unspecified Plan: arterial duplex Orders: Orders US arterial duplex LE BI Today I73.9 - Peripheral vascular disease, unspecified Coding Level of Care Code Est Pt Level 3 (31500) Diagnoses Claudication I73.9
== END 2023-09-10 11:10 | disposition home or self-care (01) ==
PROVIDERS: PCP Internal Medicine; Visit Provider Internal Medicine
DX: I73.9 Peripheral vascular disease, unspecified (principal)
CPT/HCPCS: 99213

== ENCOUNTER 2023-10-08 08:16 | Outpatient (REF) | payer MEDICARE, SELFPAY ==
--- NOTE | ~2023-10-08 | US_ITS ---
EXAMINATION: US ARTERIAL DUPLEX LOWER EXTREMITY BILATERAL CLINICAL INFORMATION: 83-year-old female with peripheral vascular disease. COMPARISON: None TECHNIQUE: Duplex Doppler imaging, color Doppler imaging and spectral waveform analysis of lower extremity arteries is performed. FINDINGS: The peak systolic velocities and additional description of lower extremity arteries and/or waveforms provided below. RIGHT LOWER EXTREMITY: Mild echogenic, calcified atherosclerotic plaque of the common femoral artery. On the grayscale and color Doppler images, there is no visible significant stenosis. No occluded vessels are identified. Common femoral artery: 155 cm/sec, triphasic waveform Profunda femoris artery: 76 cm/sec, triphasic waveform Proximal SFA: 111 cm/sec, triphasic waveform Mid SFA: 95 cm/sec, triphasic Distal SFA: 118 cm/sec, biphasic waveform Popliteal, proximal: 57 cm/sec, biphasic waveform Popliteal, distal: 68 cm/sec, biphasic waveform Posterior tibial artery, proximal: 89 cm/sec, biphasic Posterior tibial artery, mid: 91 cm/sec, biphasic Posterior tibial artery, distal: 69 cm/sec, biphasic waveform Peroneal artery, proximal: 55 cm/sec, biphasic Peroneal artery, mid: 74 cm/sec, biphasic Peroneal artery distal: 41 cm/sec, biphasic Anterior tibial artery distal: 52 cm/sec, biphasic Dorsalis pedis: 45 cm/sec, biphasic waveform LEFT LOWER EXTREMITY: On the grayscale and color Doppler images, there is no visible significant stenosis of the examined vessels. No occluded vessels are identified. Common femoral artery: 108 cm/sec, triphasic Profunda femoris artery: 86 cm/sec, triphasic Proximal SFA: 113 cm/sec, triphasic Mid SFA: 101 cm/sec, biphasic Distal SFA: 86 cm/sec, biphasic Popliteal, proximal: 62 cm/sec, triphasic Popliteal, distal colon 71 cm/sec, triphasic Posterior tibial artery, proximal: 82 cm/sec, biphasic Posterior tibial artery, mid: 91 cm/sec, biphasic Posterior tibial artery, distal: 62 cm/sec, biphasic waveform Peroneal artery, proximal: 60 cm/sec, biphasic Peroneal artery, mid: 78 cm/sec, triphasic Peroneal artery distal: 46 cm/sec, biphasic Anterior tibial artery distal: 58 cm/sec, biphasic Dorsalis pedis: 53 cm/sec, biphasic waveform US/US arterial duplex LE BI IMPRESSION: Patent vasculature is identified. No Doppler imaging evidence of a focal high-grade arterial stenosis or occlusion. The presence of biphasic waveforms within the lower leg vessels, as noted above, indicates some degree of peripheral vascular disease. If deemed clinically necessary for a more complete anatomic assessment of peripheral vessels, CT angiography-runoff examination could be performed. Alternatively, to further evaluate peripheral vascular disease, GRACE measurements and pulse volume recordings may be obtained at a dedicated vascular lab.
== END 2023-10-08 08:17 | disposition home or self-care (01) ==
LOC: HO.US 08:16
PROVIDERS: PCP Internal Medicine; Visit Provider Internal Medicine
DX: I73.9 Peripheral vascular disease, unspecified (principal)
CPT/HCPCS: 93925

== ENCOUNTER 2023-12-17 08:56 | Outpatient (REF) | payer MEDICARE, SELFPAY | END 2023-12-17 08:57 | disposition home or self-care (01) | LOC: HO.SH 08:56 | PROVIDERS: Visit Provider Internal Medicine | DX: Z01.118 Encounter for examination of ears and hearing with other abnormal findings (principal); H90.3 Sensorineural hearing loss, bilateral | CPT/HCPCS: 92552; 92556 ==

== ENCOUNTER 2023-12-17 09:35 | Outpatient (REF) | payer SELFPAY | END 2023-12-17 09:36 | disposition home or self-care (01) | LOC: HO.HAP 09:35 | PROVIDERS: Visit Provider Internal Medicine | DX: Z46.1 Encounter for fitting and adjustment of hearing aid (principal) | CPT/HCPCS: V5267 ==

== ENCOUNTER 2023-12-25 10:13 | Outpatient (REF) | payer SELFPAY | END 2023-12-25 10:14 | disposition home or self-care (01) | LOC: HO.HAP 10:13 | PROVIDERS: Visit Provider Internal Medicine | DX: Z13.89 Encounter for screening for other disorder (principal) ==

== ENCOUNTER 2024-04-30 09:31 | Outpatient (AMB) | payer MEDICARE, SELFPAY ==
--- NOTE | 2024-04-30 09:32 | MHC.PC.OV ---
Vital Signs 04/30/24 09:33 Height 5 ft 4 in Weight 134 lb 2 oz BMI 23.0 BP 120/72 Blood Pressure Location Lt brachial Position Sitting Temp 97.1 F Temp Source Temporal Artery Scan Intake Visit Reasons: Annual exam Intake Note: Patient is here today for a physical. Collection Teller Required: No University Registrar: Not Required per policy Accompanied by: Self / Same As Patient Allergies No Known Allergies Allergy (Mild, Verified 04/30/24 09:33) N/A Medication List - Last Reconciled 04/30/24 by Scott Krueger MD oxybutynin chloride 5 mg PO DAILY vitamins A,C,P-kynm-rqcpbz 4,296 mcg-226 mg-90 mg (PreserVision AREDS) 1 cap PO BID Tobacco use date assessed: 04/30/24 Fall risk assessment: No Falls in past year Last assessed Fall Risk: 04/30/24 Dental Screening Dental Screen Date: 04/30/24 Did you have a dental visit in the last 12 months?: Yes Did you have a dental problem in the last 6 months where you did not have access to dental care?: No Was dental information given to patient?: Patient has dentist HPI Annual exam HPI Details recent constipation; 3 months PFS Medical History COVID-19 vaccine series completed No pertinent past medical history Personal history of tuberculosis Surgical History Hx of cataract extraction Hx of colonoscopy H/O rectal polypectomy History of hysterectomy Family History Father Past heart attack Mother Pneumonia Paternal Aunt Breast cancer Sister Breast cancer Social History Housing: House Are you a primary care team coordinator scheduler to a significant other at home: Yes (Spouse has Alzheimers) Do you presently have visiting nurse or other home services: No Alcohol intake: current Alcohol intake frequency: holidays/special occasions only Patient Tobacco Use Status: Never used Tobacco e-Cigarette/Vaping Use: Never Used Second Hand Smoke Exposure: No service: No Current occupational status: retired Cognitive needs: No Hearing needs: No Vision needs: No Questionnaire PHQ-9 Over the last 2 weeks, how often have you been bothered by any of the following problems? 1. Little interest or pleasure in doing things: not at all 2. Feeling down, depressed, or hopeless: not at all 3. Trouble falling or staying asleep, or sleeping too much: not at all 4. Feeling tired or having little energy: not at all 5. Poor appetite or overeating: not at all 6. Feeling bad about yourself - or that you are a failure or have let yourself or your family down: not at all 7. Trouble concentrating on things, such as reading the newspaper or watching television: not at all 8. Moving or speaking so slowly that other people could have noticed. Or the opposite - being so fidgety or restless that you have been moving around a lot more than usual: not at all 9. Thoughts that you would be better off or of hurting yourself in some way: not at all Total score: 0 Depression Screening Interpretation: Negative Depression Screening Done: Yes Source: Developed by Drs. Leandro Mckeon, Annie Mcnally, Aryan Clay and colleagues, with an educational hemanth from [employer]. Thrive Questionnaire Date Thrive assessed: 04/30/24 I am a: Patient What is your living situation today?: I have a steady place to live Within the past 12 months, did the food you bought not last and you didn't have the money to get more?: Never true Within the past 12 months, did you worry whether your food would run out before you got money to buy more?: Never true Do you have trouble paying for medicines?: No Do you have trouble getting transportation to medical appointments?: No Do you have trouble paying your heating and electricity bill?: No Do you have trouble taking care of your child, family member or friend?: No Do you have trouble with day-to-day activities such as bathing, preparing meals, shopping, managing finances, etc.?: No Are you currently unemployed and looking for a job?: No Are you interested in more education?: No Please select the resources that you would like help with: None Currently or been in a relationship where the following occur: No concerns reported THRIVE Score: 0 AUDIT C Alcohol Use Questionnaire (AUDIT-C) 1. How often do you have a drink containing alcohol?: Never Total Score: 0 TATYANA-7 AMB Questionnaire TATYANA-7 Date TATYANA - 7 assessed: 04/30/24 Feeling nervous, anxious, or on edge: 0 = Not at all Not being able to stop or control worryin = Not at all Worrying too much about different things: 0 = Not at all Trouble relaxin = Not at all Being so restless that it is hard to sit still: 0 = Not at all Becoming easily annoyed or irritable: 0 = Not at all Feeling afraid as if something awful might happen: 0 = Not at all Total TATYANA-7 score (0-4 normal; 5-9 mild; 10-14 moderate; 15-21 severe): 0 Source: Developed by Drs. Leandro Mckeon, Annie Mcnally, Aryan Clay and colleagues, with an educational hemanth from [employer]. Review of Systems Const Denies chills, Denies fatigue, Denies headache(s) and Denies weight loss Eyes Denies change in vision, Denies diplopia and Denies eye pain ENT Denies vertigo, Denies dizziness, Denies headache(s) and Denies nasal discharge Card Denies chest pain, Denies rapid heart rate and Denies dyspnea on exertion Resp Denies chest congestion, Denies cough, Denies pain with cough and Denies dyspnea on exertion GI Denies abdominal pain, Denies hematochezia, Reports change in bowel habits and Reports constipation Musc Denies myalgias, Denies arthralgias and Denies joint swelling Skin/Breast Denies lesions and Denies unusual bruising Neuro Denies vertigo, Denies dizziness, Denies headache(s) and Denies focal weakness Endo Denies fatigue Physical exam (Primary Care) Vital Signs: Last Vital Signs Temp 97.1 F 04/30/24 09:33 BP 120/72 04/30/24 09:33 BMI result Body Mass Index 23.0 Tobacco/Smoking Status: Tobacco use Status Tobacco use date assessed 04/30/24 04/30/24 09:37 Patient Tobacco Use Status Never used Tobacco 04/30/24 09:37 e-Cigarette/Vaping Use Never Used 04/30/24 09:37 PHQ-9: PHQ-9 Score PHQ-9: Total score 0 04/30/24 09:37 Depression Screening Interpretation: Negative Thrive Assessment: Date of Thrive Assessment Date Thrive assessed 04/30/24 04/30/24 09:37 Currently or been in a relationship where the following occur: No concerns reported Const General: cooperative, healthy appearing and no acute distress Orientation/consciousness: oriented to person, oriented to place and oriented to time HENMT Head: Yes normal to inspection, Yes normocephalic and Yes atraumatic Mouth: Normal oral and palatal mucosa present and tongue normal Throat: Yes posterior oropharynx normal and Yes uvula midline Eyes General: appearance normal, both eyes and all related structures Neck Neck: Yes normal visual inspection, Yes full ROM and Yes no lymphadenopathy Thyroid: Thyroid normal Carotids: normal carotid upstroke Chest Chest palpation & inspection: normal inspection of the chest Resp Effort & Inspection: normal respiratory effort and able to speak in complete sentences Auscultation: clear to auscultation bilaterally Cardio Jugular venous distension: no JVD Palpation: normal PMI Rate: regular rate Rhythm: regular rhythm Heart sounds: S1 normal heart sound present and S2 normal heart sound present GI Inspection: Yes normal to inspection Palpation (GI): Soft to palpation and No hepatosplenomegaly present Auscultation: normal bowel sounds General: Yes no CVA tenderness Back/Spine/Pelvis Back: no CVA tenderness Skin General skin exam: no rashes or lesions noted Neuro General: oriented to person, oriented to place and oriented to time Extrem General: Yes normal to inspection and Yes full ROM Coding Level of Care Code Est Pt Prev Care >65y(34537) Diagnoses Physical exam Z00.00 Assessment & Plan Assessment & Plan (1) Physical exam: Code(s): Z00.00 - Encounter for general adult medical examination without abnormal findings Category: Medical Plan: stable; ref gi for colonoscopy Orders: Referrals Gastroenterology Referral K59.00 - Constipation, unspecified
[2024-04-30 09:33] VITALS: BP 120/72; TEMP 36.2; BMI 23.0
--- OUTSIDE RECORDS SUMMARY | 2024-04-30 10:20 | XMS_ITS | Encounter Summary ---
Author Organization [employer] Address [address] [facility] 7 [place] [address] Care Team Providers Care Triage Registered Nurse Name Role Phone Unavailable Primary Care Provider Unavailabl e Encounter Details Date Type Department Care Team (Latest Contact Info) Description 09/03/2018 Abstract [facility] CONVERSIONS Dental, Provider, DDS Social History Tobacco Use Types Packs/Day Years Used Date Smoking Tobacco: Never Assessed Comments Unknown Sex and Gender Information Value Date Recorded Sex Assigned at Female 12/24/2021 10:35 AM EDT Legal Sex Female 10:35 AM EDT Gender Identity Male 12/24/2021 10:35 AM EDT Sexual Orientation Straight 12/24/2021 10 :35 AM EDT documented as of this encounter Plan of Treatment Not on file documented as of this encounter Visit Diagnoses Not on filedocumented in this encounter
--- OUTSIDE RECORDS SUMMARY | 2024-04-30 10:20 | XMS_ITS | Clinical Summary ---
Author Organization [employer] Address [address] [facility] 7t [place] [address] Care Team Providers Care Bit Tripoler Name Role Phone Unavailable Primary Care Provider Unavailabl e Social History Tobacco Use Types Packs/Day Years Used Date Smoking Tobacco: Never Assessed Comments Unknown Sex and Gender Information Value Date Recorded Sex Assigned at Female 12/24/2021 10:35 AM EDT Legal Sex Female 10:35 AM EDT Gender Identity Male 12/24/2021 10:35 AM EDT Sexual Orientation Straight 12/24/2021 10 :35 AM EDT Plan of Treatment Health Maintenance Due Date Last Done Comments Depression Screening 1940 Lipid Panel 1940 Alcohol/Substance Use Screening 1954 Tobacco Screening 1954 DTaP/Tdap/Td Vaccines (1 - Tdap) 1961 Pneumococcal Vaccine: 50+ Ye ars (1 of 1 - PCV) 02/15/1992 Zoster Vaccines (1 of 2) 02/15/1992 RSV Patients and Pa tients Aged 60 years or older (1 - 1-dose 75+ series) 2017 COVID-19 Vaccine ( - 2023-2 5 season) 2023 Influenza Vaccine (#1) 2023 HIB Vaccines Aged Out No longer eligi ble based on patient's age to complete this topic HPV Vaccines Aged Out No longer eligi ble based on patient's age to complete this topic Hepatitis A Vaccines Aged Out No long er eligible based on patient's age to complete this topic Hepatitis B Vaccines Aged Out No long er eligible based on patient's age to complete this topic IPV Vaccines Aged Out No longer eligi ble based on patient's age to complete this topic Meningococcal Vaccine Aged Out No davis luz eligible based on patient's age to complete this topic RSV under 20 months Aged Out No longe r eligible based on patient's age to complete this topic Rotavirus Vaccines Aged Out No longer eligible based on patient's age to complete this topic
== END 2024-04-30 09:47 | disposition home or self-care (01) ==
PROVIDERS: PCP Internal Medicine; Visit Provider Internal Medicine
DX: Z00.00 Encounter for general adult medical examination without abnormal findings (principal)

== ENCOUNTER → 2024-04-30 09:31 | Outpatient (BNVA) | payer MEDICARE, SELFPAY | PROVIDERS: PCP Internal Medicine; Visit Provider Internal Medicine | DX: Z00.00 Encounter for general adult medical examination without abnormal findings (principal); K59.00 Constipation, unspecified | CPT/HCPCS: 99397 ==

== ENCOUNTER 2024-05-06 13:14 | Outpatient (REF) | payer MEDICARE, SELFPAY ==
[2024-05-06 13:25] LABS: MANUAL DIFF FLAG NO
[2024-05-06 14:14] LABS: Basophils Percent Auto 0.2 % (0-2); Eosinophils Percent Auto 0.1 % (0-4); Hematocrit 45.6 % (37.0-47.0); Hemoglobin 14.9 g/dl (12.0-16.0); Imm Gran Abs Auto 0.04 X10*3/uL (0.00-0.03); Imm Gran Pct Auto 0.4 % (0.0-0.4); Lymphocytes Absolute Auto 2.2 X10*3/uL (1.2-4.9); Lymphocytes Percent Auto 21.2 % (20-40); Mean Corpuscular HGB Conc 32.7 g/dl (31.0-35.0); Mean Corpuscular Volume 91.9 fL (80.0-98.0); Mean Platelet Volume 9.9 fL (9.4-12.3); Monocytes Absolute Auto 0.6 X10*3/uL (0.1-1.2); Neutrophils Absolute Auto 7.6 x10*3/uL (2.0-8.3); Neutrophils Percent Auto 72.1 % (45-73); Platelet Count 283 X10*3/uL (160-400); Red Blood Count 4.96 X10*6/uL (4.20-5.50); White Blood Count 10.5 X10*3/uL (4.8-10.8)
[2024-05-06 15:07] LABS: Alanine Aminotransferase 18 U/L (0-31); Albumin Level 4.5 g/dL (3.5-5.0); Alkaline Phosphatase 71 U/L (39-117); Anion Gap 11 (12-20); Aspartate Amino Transferase 25 U/L (5-31); Bilirubin Direct 0.2 mg/dL (0.0-0.5); Bilirubin Total 0.5 mg/dL (0.0-1.0); Blood Urea Nitrogen 28 mg/dL (9-16); Calcium 9.9 mg/dL (8.4-10.2); Carbon Dioxide 27 mmol/L (22-29); Chloride 107 mmol/L (96-108); Estimated Glomerular Filt Rate > 60; Glucose Random 112 mg/dL (60-115); Potassium 4.2 mmol/L (3.3-5.1); Sodium 141 mmol/L (135-145); Total Protein 7.3 g/dL (6.5-8.0)
[2024-05-06 15:08] LABS: TSH reflex Free T4 1.14 uIU/mL (0.32-4.0)
--- OUTSIDE RECORDS SUMMARY | 2024-05-06 16:46 | XMS_ITS | Patient Health Record ---
Author Organization [facility] Address [address] [place] [address] Care Team Providers Care Food Critic Name Role Phone Scott Krueger MD Primary Care Provider Leandro Amaro [phone] Allergies No Known Allergies Results Component Value Reference Range Notes TSH reflex Free T4 (Not yet reviewed by provider) Interpretation: Performing Lab:[facility], [address] [place] [phone] Notes/Report: TSH reflex Free T4 1.14 0.32-4.0 uIU/mL Complete Blood Count Auto Di ff (Not yet reviewed by provider) Interpretation: Performing Lab:[facility], [address] [place] [phone] Notes/Report: White Blood Count 10.5 4.8-10.8 X10*3/uL Red Blood Count 4.96 4.20-5.50 X10*6/uL Hemoglobin 14.9 12.0-16.0 g/dl Hematocrit 45.6 37.0-47.0 % Mean Corpuscular Volume 91.9 80.0-98.0 fL Mean Corpuscular Hemoglobin 30.0 27.0-33.0 pg Mean Corpuscular HGB Conc 32.7 31.0-35.0 g/dl Red Cell Distribution Width 13.0 11.0-16.0 % Platelet Count 283 160-400 X10*3/uL Mean Platelet Volume 9.9 9.4-12.3 fL Neutrophils Percent Auto 72.1 45-73 % Imm Gran Pct Auto 0.4 0.0-0.4 % Lymphocytes Percent Auto 21.2 20-40 % Monocytes Percent Auto 6.0 2-11 % Eosinophils Percent Auto 0.1 0-4 % Basophils Percent Auto 0.2 0-2 % NRBC Pct Auto 0.0 0.0-0.2 /100WBC Neutrophils Absolute Auto 7.6 2.0-8.3 x10*3/u L Imm Gran Abs Auto 0.04 0.00-0.03 X10*3/uL Lymphocytes Absolute Auto 2.2 1.2-4.9 X10*3/u L Monocytes Absolute Auto 0.6 0.1-1.2 X10*3/uL Eosinophils Absolute Auto 0.0 0.0-0.4 X10*3/u L Basophils Absolute Auto 0.0 0.0-0.2 X10*3/uL NRBC Abs Auto 0.000 0.0-0.012 X10*3/uL Liver Panel (Not yet reviewe d by provider) Interpretation: Performing Lab:[facility], [address] [place] [phone] Notes/Report: Bilirubin Total 0.5 0.0-1.0 mg/dL Bilirubin Direct 0.2 0.0-0.5 mg/dL Aspartate Amino Transferase 25 5-31 U/L Alanine Aminotransferase 18 0-31 U/L Total Protein 7.3 6.5-8.0 g/dL Albumin Level 4.5 3.5-5.0 g/dL Alkaline Phosphatase 71 39-117 U/L Basic Metabolic Panel Reviewed date:05/06/2024 04:45:09 PM Interpretation: Performing Lab:[facility], [address] [place] [phone] Notes/Report: Sodium 141 135-145 mmol/L Potassium 4.2 3.3-5.1 mmol/L Chloride 107 96-108 mmol/L Carbon Dioxide 27 22-29 mmol/L Anion Gap 11 12-20 Blood Urea Nitrogen 28 9-16 mg/dL Creatinine 0.81 0.5-1.4 mg/dL Estimated Glomerular Filt Rate > 60 Chronic Kidney Disease: Estimated GFR < 60 mL/min/1.73m2 Severe Kidney Disease: Estimated GFR < 15 mL/min/1.73m2 Glucose Random 112 60-115 mg/dL Calcium 9.9 8.4-10.2 mg/dL Reason For Referral No Information Social History Tobacco Use: Social History Observation Description Date Details (start date - stop date) Never Smoker NA - NA Tobacco Control (Standard) Question Answer Notes Tobacco use: Nonsmoker AUDIT-C (Standard) Question Answer Notes Did you have a drink contain ing alcohol in the past year? Yes How often did you have a dri nk containing alcohol in the past year? Monthly or less (1 point) How many drinks did you have on a typical day when you were drinking in the past year? 1 or 2 drinks (0 point) How often did you have six o r more drinks on one occasion in the past year? Never (0 point) Points 1 Interpretation Negative Problems Problem Type SNOMED Code ICD Code Onset Dates Problem Status W/U Status Risk Notes Problem Constipation (24155158) Constipation (K59.00) Active confirmed Vital Signs Blood pressure diastolic 11 mm Hg 05/06/2024 Height 64.5 in 05/06/2024 Blood pressure systolic 111 mm Hg 05/06/2024 Weight 134 lbs 05/06/2024 BMI 22.64 kg/m2 05/06/2024 Procedures Procedure Date Ordered Date Performed Result Body Sit e COLONOSCOPY 05/06/2024 N/A Encounters Encounter Location Date Provider Diagnosis [facility] [address] [place] [address] 05/06/2024 Leandro Navarro Constipation K59.00 and Change in bowel habit R19.4 Assessments Encounter Date Diagnosis (ICD Code) Assessment Notes Treatment Notes Treatment Clinical Notes Section Notes 05/06/2024 Constipation (ICD-10 - K59.00) Try taking 2 Metamucil fiber pills with a lot of water once or twice a day to help with the constipation 05/06/2024 Change in bowel habit (ICD-10 - R19.4) Plan Of Treatment Pending Test Test Name Order Date COLONOSCOPY 05/06/2024 CHEM 7 PROFILE 05/06/2024 LIVER PROFILE 05/06/2024 CBC w DIFF 05/06/2024 Complete Blood Count Auto Diff Liver Panel 05/06/2024 TSH reflex Free T4 05/06/2024 Next Appt Details Provider Name:Leandro Navarro , 05/13/2024 02:00:00 PM, [address] [facility] , [place], [place], [id number], Insurance Providers Payer Name Payer Address Payer Phone Subscriber Number Group Number Insured Name Patient Relationship to Insured Coverage Start Date Coverage End Date [employer] [address] [place] [phone] [id number] MOHINDER MARTIN Self - patient is the insured Medical (General) History Medical History History ICD Code Denies IA,DM,CVA,Lung disease,renal dise ase Tubular adenoma removed in [address] Gifford; Neg. colonoscopy [place] [address] Jones Surgical History Surgery Date(Month/Year) Tonsils Scar tissue in urinary bladder LONI
--- OUTSIDE RECORDS SUMMARY | 2024-05-06 16:46 | XMS_ITS | Encounter Summary ---
Author Organization [employer] Address [address] [facility] 7 [place] [address] Care Team Providers Care Soda Maker Name Role Phone Unavailable Primary Care Provider Unavailabl e Encounter Details Date Type Department Care Team (Latest Contact Info) Description 09/03/2018 Abstract [facility] CONVERSIONS Dental, Provider, DDS Social History Tobacco [...]
--- OUTSIDE RECORDS SUMMARY | 2024-05-06 16:46 | XMS_ITS ---
Author Organization [facility] Address [address] [place] [address] Care Team Providers Care Doughnut Dough Mixer Name Role Phone Scott Krueger MD Primary Care Provider Leandro Amaro Unavailable [phone] Allergies No Known Allergies Results Component Value Reference Range Notes TSH reflex Free T4 (Not yet reviewed by provider) Interpretation: Performing Lab:[facility], [address] [place] [phone] Notes/Report: TSH reflex Free T4 1.14 0.32-4.0 uIU/mL REASON FOR VISIT Patient presents today for constipation Social History Tobacco Use: Social History Observation [...] Status W/U Status Risk Notes Problem Constipation (54533252) Constipation (K59.00) Active confirmed Vital Signs Blood pressure systolic 111 mm Hg 05/07/19 25 Blood pressure diastolic 11 mm Hg 025 Height 64.5 in 05/06/2024 Weight 134 lbs 05/06/2024 BMI 22.64 kg/m2 05/06/2024 Procedures Procedure Date Ordered Date Performed Result Body Sit e COLONOSCOPY 05/06/2024 N/A Encounters Encounter Location Date Provider Diagnosis [facility] [address] [facility] [address] [place] [address] 05/06/2024 Leandro Navarro Constipation K59.00 and Change in bowel habit R19.4 Assessments Encounter Date Diagnosis (ICD Code) Assessment Notes Treatment Notes Treatment Clinical Notes Section Notes 05/06/2024 Constipation (ICD-10 - K59.00) Try taking 2 Metamucil fiber pills with a lot of water once or twice a day to help with the constipation 05/06/2024 Change in bowel habit (ICD-10 - R19.4) Plan Of Treatment Treatment Notes Assessment Notes Constipation Try taking 2 Metamuc il fiber pills with a lot of water once or twice a day to help with the constipation Pending Test Test Name Order Date COLONOSCOPY 05/06/2024 CHEM 7 PROFILE 05/06/2024 LIVER PROFILE 05/06/2024 CBC w DIFF 05/06/2024 TSH reflex Free T4 05/06/2024 Next Appt Details Provider Name:Leandro Navarro , 05/13/2024 02:00:00 PM, [address] [place] [address] , [place], [place], [phone], Progress Notes * YOSEF DÍAZADOB: [birth year] (84 yo F)Acc No.[id number]:05/06/2024 Progress Notes Patient:?YOSEF DÍAZA Provider:?Leandro Navarro MD :1940???Age:84 Y???Sex:Female D ate:05/06/2024 Address:[address] [place] [address] , [place], [id number] Pcp:Scott Krueger MD Subjective: * Chief Complaints: * ???1. Patient presents today for constipation. * Medical History:?Denies MO,Corrina M,CVA,Lung disease,renal disease, Tubular adenoma [place] [address] Gifford; Neg. colonoscopy in [address] Jones. * Surgical History:?LONI , Sca r tissue in urinary bladder , Tonsils . * Family History:?Father: dece ased 50 yrs, diagnosed with Heart disease.?Mother: 82 yrs.? no known hx of colon cancer. * Social History:?Tobacco Use:?Tobacco Control (Standard)?Tobacco use:?Nonsmoker.?Miscellaneous:?Marital status: . Occupation: retired. ???Drug/Alcohol:?AUDIT-C (Standard)?Did you have a drink containing alcohol in the past year??Yes,?How often did you have a drink containing alcohol in the past year??Monthly or less (1 point),?How many drinks did you have on a typical day when you were drinking in the past year??1 or 2 drinks (0 point),?How often did you have six or more drinks on one occasion in the past year??Never (0 point),?Points?1,?Interpretation?Negative.? * Medications:?None * Allergies:?N.K.D.A. Objective: * Vitals:?Wt: 134 lbs, Ht: 64. 5 in, BMI: 22.64 Index, BP: 111/11 mm Hg, Ht-cm: 163.83, Wt-k.78. Assessment: * Assessment: 1.?Constipation - K59.00 (Pr imary)???2.?Change in bowel habit - R19.4??? Plan: * Treatment: ? Value Reference Range ?TSH reflex Free T4 1.14 0.32 -4.0 - uIU/mL ?Procedure: COLONOSCOPY* with MACsched for 05/13/24 at 2:00 pmmiralax Notes: Try taking 2 Metamucil fiber pills with a lot of water once or twice a day to help with the constipation??2.?Change in bowel habit?LAB: CHEM 7 PROFILE ?LAB: LIVER PROFILE ?LAB: CBC w DIFF ?LAB: TSH reflex Free T4 (Collection Date & Time - 05/06/2024 01:24 PM)* ? Value Reference Range ?TSH reflex Free T4 1.14 0.32 -4.0 - uIU/mL ?Procedure: COLONOSCOPY* with MACsched for 05/13/24 at 2:00 pmmiralax * Procedure Codes:?21917 DIAGN OSTIC COLONOSCOPY * Preventive Medicine:? ??Urinary Incontinence:?Urinary Incontinence?Assessment:?Absent,?Plan of care documented:?No, reason not specified.? ??Screenings:?Fall Risk Screening?Fall Risk Assessment:?No falls in the past year,?Screening:?No falls in the past year,?Assessment:?Not performed, no reason specified,?Plan of Care:?Not documented, no reason specified.? * * The named appointment provid er may or may not be the originator of this progress note, and it is not deemed complete until electronically signed by the appointment provider. Sign off status: Pending * Provider:?Leandro Navarro MD Date:? 025 Generated for Isabela brock/Alisson/Marcioitting on:?05/06/2024 04:46 PM EDT
--- OUTSIDE RECORDS SUMMARY | 2024-05-06 16:46 | XMS_ITS | Clinical Summary ---
Author Organization [employer] Address [address] [facility] 7t [place] [address] Care Team Providers Care Insurance Professional Name Role Phone Unavailable Primary Care Provider [...]
== END 2024-05-06 13:15 | disposition home or self-care (01) ==
LOC: HO.LAB 13:14
PROVIDERS: PCP Internal Medicine; Visit Provider Internal Medicine
DX: K59.00 Constipation, unspecified (principal); R19.4 Change in bowel habit
CPT/HCPCS: 36415; 80048; 80076; 84443; 85025

== ENCOUNTER 2024-05-13 11:50 | Day surgery (SDC) | payer MEDICARE, SELFPAY ==
--- OUTSIDE RECORDS SUMMARY | 2024-05-07 09:31 | XMS_ITS ---
Author Organization [facility] Address [address] [place] [address] Care Team Providers Care Exchange Engineer Name Role Phone Scott Krueger MD Primary Care Provider Leandro Amaro Unavailable [phone] Allergies No Known Allergies Results Component Value Reference Range Notes TSH reflex Free T4 Reviewed date:05/06/2024 06:34:57 PM Interpretation: Performing Lab:[facility], [address] [place] [phone] Notes/Report: TSH reflex Free T4 1.14 0.32-4.0 [...] Status W/U Status Risk Notes Problem Constipation (32189845) Constipation (K59.00) Active confirmed Vital Signs Blood pressure systolic 111 mm Hg 05/07/19 25 Blood pressure diastolic 11 mm Hg 025 Height 64.5 in 05/06/2024 Weight 134 lbs 05/06/2024 BMI 22.64 kg/m2 05/06/2024 Procedures Procedure Date Ordered Date Performed Result Body Sit e COLONOSCOPY 05/06/2024 N/A Encounters Encounter Location Date Provider Diagnosis [facility] [address] [facility] [address] [place] [address] 05/06/2024 Leandro Navarro Constipation K59.00 and Change [...] LIVER PROFILE 05/06/2024 CBC w DIFF 05/06/2024 Next Appt Details Provider Name:Leandro Navarro , 05/13/2024 02:00:00 PM, [address] [place] [address], [phone], Progress Notes * DEMETRIOYOLANDAYOSEF CABANADOB: 2 (84 yo F)Acc No.[id number]:05/06/2024 Progress Notes Patient:?MOHINDER DÍAZ Provider:?Leandro Navarro MD :1940???Age:84 Y???Sex:Female D ate:05/06/2024 Address:[address] [place] [address] [facility] Pcp:Scott Krueger MD Subjective: * Chief Complaints: * ???1. Patient presents today for constipation. * Medical History:?Denies Corrina HEIN M,CVA,Lung disease,renal disease, Tubular adenoma removed in [...] for 05/13/24 at 2:00 pmmiralax * Procedure Codes:?83110 DIAGN OSTIC COLONOSCOPY * Preventive Medicine:? ??Urinary [...] MD Date:? 025 Generated for Isabela brock/Alisson/Marcioitting on:?05/07/2024 09:31 AM EDT
--- OUTSIDE RECORDS SUMMARY | 2024-05-07 09:31 | XMS_ITS | Patient Health Record ---
Author Organization [facility] Address [address] [place] [address] Care Team Providers Care Icing Maker Name Role Phone Scott Krueger MD Primary Care Provider Leandro Amaro [phone] Allergies No Known Allergies Results Component Value Reference Range Notes TSH reflex Free T4 Reviewed date:05/06/2024 06:34:57 PM Interpretation: Performing Lab:[facility], [address] [place] [phone] Notes/Report: TSH reflex Free T4 1.14 0.32-4.0 uIU/mL Complete Blood Count Auto Di ff Reviewed date:05/06/2024 04:46:33 PM Interpretation: Performing Lab:[facility], [address] [place] [phone] Notes/Report: White Blood Count 10.5 4.8-10.8 X10*3/uL [...] yet reviewe d by provider) Interpretation: Performing Lab:[address] [phone] Notes/Report: Bilirubin Total 0.5 0.0-1.0 mg/dL Bilirubin Direct 0.2 0.0-0.5 mg/dL Aspartate Amino Transferase 25 5-31 U/L Alanine Aminotransferase 18 0-31 U/L Total Protein 7.3 6.5-8.0 g/dL Albumin Level 4.5 3.5-5.0 g/dL Alkaline Phosphatase 71 39-117 U/L Basic Metabolic Panel Reviewed date:05/06/2024 04:45:09 PM Interpretation: Performing Lab:[address] [phone] Notes/Report: Sodium 141 135-145 mmol/L Potassium 4.2 [...] Status W/U Status Risk Notes Problem Constipation (16238644) Constipation (K59.00) Active confirmed Vital Signs Blood pressure diastolic 11 mm Hg 05/06/2024 Height 64.5 in 05/06/2024 Blood pressure systolic 111 mm Hg 05/06/2024 Weight 134 lbs 05/06/2024 BMI 22.64 kg/m2 05/06/2024 Procedures Procedure Date Ordered Date Performed Result Body Sit e COLONOSCOPY 05/06/2024 N/A Encounters Encounter Location Date Provider Diagnosis [facility] [address] [facility] [address] [place] [address] 05/06/2024 Leandro Navarro Constipation K59.00 and Change [...] LIVER PROFILE 05/06/2024 CBC w DIFF 05/06/2024 Liver Panel 05/06/2024 Next Appt Details Provider Name:Leandro Navarro , 05/13/2024 02:00:00 PM, [address] [facility] , [place], [place], [phone], Insurance Providers Payer Name Payer Address Payer Phone Subscriber Number Group Number Insured Name Patient Relationship to Insured Coverage Start Date Coverage End Date [employer] [address] [place] [phone] [id number] MOHINDER MARTIN Self - patient is the insured Medical (General) History Medical History History ICD Code Denies ID,DM,CVA,Lung disease,renal dise ase Tubular adenoma removed in [address] Gifford; Neg. colonoscopy [place] [address] Jones Surgical History Surgery Date(Month/Year) Tonsils Scar tissue in urinary bladder LONI
--- OUTSIDE RECORDS SUMMARY | 2024-05-07 09:31 | XMS_ITS | Clinical Summary ---
Author Organization [employer] Address [address] [facility] 7[address] [place] [address] Care Team Providers Care Manager Etl Name Role Phone Unavailable Primary Care Provider [...]
--- OUTSIDE RECORDS SUMMARY | 2024-05-07 09:31 | XMS_ITS | Encounter Summary ---
Author Organization [employer] Address [address] [facility] 7 [place] [address] Care Team Providers Care Denitrator Name Role Phone Unavailable Primary Care Provider Unavailabl e Encounter Details Date Type Department Care Team (Latest Contact Info) Description 09/03/2018 Abstract [facility] CONVERSIONS Dental, Provider, DDS Social History [...]
--- NOTE | 2024-05-13 12:30 | P.CONAN_ITS ---
Documented by User: Lupe Kennedy NP 05/12/24 10:56 HPI - Anesthesia Eval Consult details Narrative: 84yo F for Colonoscopy 2022 cardiac w/u with [facility] Cardiology for atypical CP, palps with negative holter, negative Coronary CTA PMFSH Active Problems Active Problems: All Active Problems Claudication (Acute) Insomnia (Acute) Abnormal stress test (Acute) Left chest pressure (Acute) Fatigue (Acute) Physical exam (Acute) Preop exam for internal medicine (Acute) Past Medical History Medical History COVID-19 vaccine series completed No pertinent past medical history Personal history of tuberculosis Family History Family History Father Past heart attack Mother Pneumonia Paternal Aunt Breast cancer Sister Breast cancer Family history of problems with anesthesia: No Surgical History Surgical History Hx of cataract extraction Hx of colonoscopy H/O rectal polypectomy History of hysterectomy History of Problems with Anesthesia: No Social History Social History Housing: House 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: Yes (Spouse has A lzheimers) Do you presently have visiting nurse or other home services: No Alcohol intake: current Alcohol intake frequency: holidays/special occasions only Patient Tobacco Use Status: Never used Tobacco e-Cigarette/Vaping Use: Never Used Second Hand Smoke Exposure: No Use of substances other than those prescribed or required for medical reasons: No Are you DNR?: No Advance Directives: No Advance Directives Information Provided: Yes Recently lost weight without trying: No Nutrition Risks: No Nutritional Risk Patient : No service: No Current occupational status: retired Cognitive needs: No Hearing needs: No Vision needs: No Meds Allergies Allergy/AdvReac Type Severity Reaction Status Date / Time No Known Allergies Allergy Mild N/A Verified 04/30/24 09:33 Home Medications ?Medication ?Instructions ?Recorded ?Confirmed ?Last Taken ?Type vitamins A,C,I-jczz-zqzpgb 4,296 1 cap PO BID 12/15/20 04/30/24 Unknown History mcg-226 mg-90 mg capsule (PreserVision AREDS) Exam Pertinent Lab Results Pertinent Lab Results: Laboratory Tests 05/06/24 13:24 WBC 10.5 Hgb 14.9 Hct 45.6 Plt Count 283 Sodium 141 Potassium 4.2 Chloride 107 Carbon Dioxide 27 BUN 28 H Creatinine 0.81 Narrative Narrative: Holter 2022 1. Patient was monitored for total period of 6 days and 22 hours 2. Baseline was normal sinus rhythm with average heart of 64 beats per minute 3. Frequent sinus bradycardia with 54% of time heart rate below 60 beats per minute with no significant pauses 4. Occasional PACs with total burden of 0.75% 5. No patient reported events Coronary CTA 2022 No signif CAD Assessment and Plan Assessment Anesthesia Assessment: Chart Reviewed Final Anesthetic Review Family History of Problems with Anesthesia: No History of Problems with Anesthesia: No Documented by User: Rosalia Huynh DO 05/13/24 13:00 [facility] Past Medical History Medical History COVID-19 vaccine series completed No pertinent past medical history Personal history of tuberculosis Family History Family History Father Past heart attack Mother Pneumonia Paternal Aunt Breast cancer Sister Breast cancer Family history of problems with anesthesia: No Surgical History Surgical History Hx of cataract extraction Hx of colonoscopy H/O rectal polypectomy History of hysterectomy History of Problems with Anesthesia: No Social History Social History Housing: House 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: Yes (Spouse has Alzheimers) Do you presently have visiting nurse or other home services: No Alcohol intake: current Alcohol intake frequency: holidays/special occasions only Patient Tobacco Use Status: Never used Tobacco e-Cigarette/Vaping Use: Never Used Second Hand Smoke Exposure: No Use of substances other than those prescribed or required for medical reasons: No Are you DNR?: No Advance Directives: No Advance Directives Information Provided: Yes Recently lost weight without trying: No Nutrition Risks: No Nutritional Risk Patient : No service: No Current occupational status: retired Cognitive needs: No Hearing needs: No Vision needs: No Meds Allergies Allergy/AdvReac Type Severity Reaction Status Date / Time No Known Allergies Allergy Mild N/A Verified 04/30/24 09:33 Home Medications ?Medication ?Instructions ?Recorded ?Confirmed ?Last Taken ?Type vitamins A,C,K-vwyb-iwhxnc 4,296 1 cap PO BID 12/15/20 04/30/24 Unknown History mcg-226 mg-90 mg capsule (PreserVision AREDS) Exam Exam Date and Time: 05/13/24 1230 Height,Weight and Vital Signs: Height 5 ft 5 in Weight 59.2 kg Vital Signs Temperature 96.9 F 05/13/24 12:41 Pulse Rate 91 05/13/24 12:41 Respiratory Rate 16 05/13/24 12:41 Blood Pressure 133/66 05/13/24 12:41 Pulse Oximetry 99 05/13/24 12:41 Oxygen Delivery Method Room Air 05/13/24 12:41 Temperature 96.9 F 05/13/24 12:41 Pulse Rate 91 05/13/24 12:41 Respiratory Rate 16 05/13/24 12:41 Blood Pressure 133/66 05/13/24 12:41 Pulse Oximetry 99 05/13/24 12:41 Oxygen Delivery Method Room Air 05/13/24 12:41 Airway Mallampati Class: II TM Dist: >3cm Neck ROM: Full Loose/Missing/Broken Teeth: No (patient denies any loose or broken teeth) Heart: S1S2 Lungs: CTAB Assessment and Plan Assessment Anesthesia Assessment: Anesthesia Plan Discussed and Chart Reviewed Final Anesthetic Review Family History of Problems with Anesthesia: No History of Problems with Anesthesia: No NPO: Yes ASA Class: I Final Preanesthetic Review: No Changes in Pt Med Stat, Meds/Allgs Chart Reviewed, Consent Obtained/Reviewed and Anes Risks/Benef Reviewed Patient Risk: Low Procedure Risk: Low Anesthetic Plan Anesthetic Plan: MAC: and Agree w/ Assess. and Plan Disposition: Standard PACU
[2024-05-13 12:35] VITALS: BMI 21.7
[2024-05-13 12:41] VITALS: BP 133/66; PULSE 91; RESP 16; TEMP 36.1; O2SAT 99
[2024-05-13] MEDS: Lactated Ringers 1,000 ML 100 ML IVCONT (12:54)
[2024-05-13 14:12] VITALS: BP 113/51; PULSE 61; RESP 16; TEMP 36.1; O2SAT 100
--- NOTE | 2024-05-13 14:18 | PM.OP ---
Brief Operative Note Date of Service: 05/13/24 Pre-op diagnosis: Change in BM's, Constipation Post-op diagnosis: other (Polyp, Diverticulosis) Procedure: Colonoscopy to the cecum with hot snare polypectomy x 1 Surgeon: Leandro Navarro MD Anesthesia: MAC Was an Checkering Machine Adjuster used for this Procedure?: No Estimated blood loss (mL): 0 Pathology: other (A. Polyp at 40cm) Condition: stable Disposition: PACU
[2024-05-13 14:27] VITALS: BP 120/54; PULSE 61; RESP 16; TEMP 36.4; O2SAT 100
--- NOTE | 2024-05-13 15:09 | OP_ITS ---
DATE OF SERVICE: 05/13/2024 SURGEON: Leandro Navarro MD INDICATIONS: The patient presents for evaluation of change in bowel habits with constipation. Full consent has been obtained from her for this, including risks of bleeding and perforation. PREOPERATIVE DIAGNOSIS: Change in bowel habits and constipation. POSTOPERATIVE DIAGNOSIS: Change in bowel habits and constipation, colon polyp, diverticulosis, internal hemorrhoids. PROCEDURE PERFORMED: Colonoscopy to the cecum with hot snare polypectomy x1. ESTIMATED BLOOD LOSS: COMPLICATIONS: ANESTHESIA: Medication used, monitored anesthesia care. ASSISTANTS: SPECIMENS: DESCRIPTION OF PROCEDURE: The patient was placed in the left lateral decubitus position. The digital rectal exam revealed no abnormalities. The Olympus video pediatric colonoscope was entered into the rectum, advanced easily to the cecum. Once in the cecum, I did identify normal-appearing cecal pouch with appendiceal orifice and a normal-appearing ileocecal valve. There was transillumination of light deep in the right lower quadrant. The entire cecum and ileocecal valve appeared normal. The scope was slowly withdrawn assessing all mucosal surfaces carefully. Preparation was excellent. In the proximal ascending colon were 2 flat, less than 5 mm polyps, which were each biopsied and removed completely with cold biopsy forceps. They were placed in the same container. At 40 cm was an approximately 10 to 12 mm polyp, which was removed by hot snare polypectomy and recovered by suction. The polypectomy site appeared clean, without any sign of residual polyp nor bleeding. I did not visualize any sign of other polyps, colitis, or angiodysplasia. There was a mild amount of sigmoid diverticulosis. In the rectum scope was retroflexed visualizing internal hemorrhoids, but no other pathology. The rectal mucosa appeared normal. The scope was straightened and withdrawn from the patient. She tolerated the procedure well and was returned to the recovery area in stable condition. IMPRESSION: 1. Colon polyps. 2. Diverticulosis. 3. Internal hemorrhoids. PLAN: The results of the pathology will be checked. Given these findings and her age, I do not think she would need any further colonoscopies unless her symptoms required. She was advised to try some Metamucil once or twice a day with plenty of water on a regular basis to see if that would help with her constipation. She was advised not to use any aspirin and NSAIDs for 1 week. If things are stable and improved, she can see me on a p.r.n. basis. This has all been discussed with her son, Aaron. MD AMY Vieyra/ELEONORA / [phone]
== END 2024-05-13 14:58 | disposition home or self-care (01) ==
PROVIDERS: PCP Internal Medicine; Visit Provider Internal Medicine
PROC: 0DJD8ZZ Inspection of Lower Intestinal Tract, Via Natural or Artificial Opening Endoscopic (ICD-10-PCS; CPT 45378; principal; 2024-05-13 13:00)
DX: R19.4 Change in bowel habit (principal); Z86.0101 Personal history of adenomatous and serrated colon polyps; D12.2 Benign neoplasm of ascending colon; K63.5 Polyp of colon; K59.00 Constipation, unspecified; K57.30 Diverticulosis of large intestine without perforation or abscess without bleeding; K64.8 Other hemorrhoids
CPT/HCPCS: 45385; 88305; J2704

== ENCOUNTER 2024-09-28 10:10 | Outpatient (AMB) | payer MEDICARE, SELFPAY ==
--- OUTSIDE RECORDS SUMMARY | 2024-08-26 06:20 | XMS_ITS ---
Author Organization [facility] Address [address] [place] [address] Care Team Providers Care Commercial Insulator Name Role Phone Scott Krueger MD Primary Care Provider Leandro Amaro [phone] REASON FOR VISIT constipation Encounters Encounter Location Date Provider Diagnosis [facility] [address] [place], [place] [address] [place] [address] 08/26/2024 Leandro Navarro Plan Of Treatment No Information Progress Notes * ANDRES DÍAZB: 2 (84 yo F)Acc No.[id number]:08/26/2024 Progress Notes Patient: YOESF YOUSSEFA Provider: Jarvis Navarro MD :1940 A ge:84 Y S ex:Female Date:08/26/2024 Address:[address] [id number] Pcp:Scott Krueger MD Subjective: * Chief Complaints: [...] Date: 08/26/2024 Generated for Isabela brock/Alisson/eTransmitting on: 09/28/2024 10:43 AM EDT
--- NOTE | 2024-09-28 10:18 | MHC.PC.OV ---
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 Accompanied by: Self / Same As Patient Allergies No Known Allergies Allergy (Mild, Verified 09/28/24 10:45) N/A Medication List - Last Reconciled 09/28/24 by Ignacio Tineo MD multivitamin (Daily Multi-Vitamin tablet) 1 tab PO DAILY vitamins A,C,L-klxx-vksgiz 4,296 mcg-226 mg-90 mg (PreserVision AREDS) 1 cap PO BID Tobacco use date assessed: 09/28/24 Fall risk assessment: No Falls in past year Last assessed Fall Risk: 09/28/24 Dental Screening Dental Screen Date: 09/28/24 Did you have a dental visit in the last 12 months?: Yes Did you have a dental problem in the last 6 months where you did not have access to dental care?: No Was dental information given to patient?: Patient has dentist HPI [facility] Dr Krueger/ month f/u HPI Details Patient comes in today for her follow up visit - is transferring over from Dr. Krueger, who retired from the practice a few months ago Patient states that she feels okay She denies any headaches or dizziness Denies any chest pains, no increased SOB No nausea/vomiting, no abdominal pain No change in bowel habits noted States that her left leg and foot has a tendency to swell up on her mostly when [place] but she denies any leg pains or cramping when she is walking States that she still tries to walk for about 30 to 45 minutes regularly / daily whenever she can Adds that she's had trouble staying asleep at night and often wakes up after a few hours for no reason; states that she has no trouble falling asleep and is wondering if there is anything natural she can try taking to see if it will help with her sleep [facility] Medical History (Updated 09/28/24 @ 12:11 by Ignacio Tineo MD) COVID-19 vaccine series completed Personal history of tuberculosis Surgical History Hx of cataract extraction Hx of colonoscopy H/O rectal polypectomy History of hysterectomy Family History Father Past heart attack Mother Pneumonia Paternal Aunt Breast cancer Sister Breast cancer Social History Housing: House Are you a primary child care provider to a significant other at home: Yes (Spouse has Alzheimers) Do you presently have visiting nurse or other home services: No Alcohol intake: current Alcohol intake frequency: holidays/special occasions only Patient Tobacco Use Status: Never used Tobacco e-Cigarette/Vaping Use: Never Used Second Hand Smoke Exposure: No service: No Current occupational status: retired Cognitive needs: No Hearing needs: No Vision needs: No Questionnaire PHQ-9 Over the last 2 weeks, how often have you been bothered by any of the following problems? 1. Little interest or pleasure in doing things: not at all 2. Feeling down, depressed, or hopeless: not at all 3. Trouble falling or staying asleep, or sleeping too much: not at all 4. Feeling tired or having little energy: not at all 5. Poor appetite or overeating: not at all 6. Feeling bad about yourself - or that you are a failure or have let yourself or your family down: not at all 7. Trouble concentrating on things, such as reading the newspaper or watching television: not at all 8. Moving or speaking so slowly that other people could have noticed. Or the opposite - being so fidgety or restless that you have been moving around a lot more than usual: not at all 9. Thoughts that you would be better off or of hurting yourself in some way: not at all Total score: 0 Depression Screening Interpretation: Negative Depression Screening Done: Yes 57910 - PHQ-9 Billing: Yes Source: Developed by Drs. Leandro Mckeon, Annie Mcnally, Aryan Clay and colleagues, with an educational hemanth from [employer]. Thrive Questionnaire Date Thrive assessed: 09/28/24 I am a: Patient What is your living situation today?: I choose not to answer this question Within the past 12 months, did the food you bought not last and you didn't have the money to get more?: I choose not to answer this question Within the past 12 months, did you worry whether your food would run out before you got money to buy more?: I choose not to answer this question Do you have trouble paying for medicines?: I choose not to answer this question Do you have trouble getting transportation to medical appointments?: I choose not to answer this question Do you have trouble paying your heating and electricity bill?: I choose not to answer this question Do you have trouble taking care of your child, family member or friend?: I choose not to answer this question Do you have trouble with day-to-day activities such as bathing, preparing meals, shopping, managing finances, etc.?: I choose not to answer this question Are you currently unemployed and looking for a job?: I choose not to answer this question Are you interested in more education?: I choose not to answer this question Please select the resources that you would like help with: None Currently or been in a relationship where the following occur: I choose not to answer THRIVE Score: 0 AUDIT C Alcohol Use Questionnaire (AUDIT-C) 1. How often do you have a drink containing alcohol?: Never 3. How often do you have six or more drinks on one occasion?: Never Total Score: 0 Score Reviewed/Action Taken: Yes TATYANA-7 AMB Questionnaire TATYANA-7 Date TATYANA - 7 assessed: 09/28/24 Feeling nervous, anxious, or on edge: 0 = Not at all Not being able to stop or control worryin = Not at all Worrying too much about different things: 0 = Not at all Trouble relaxin = Not at all Being so restless that it is hard to sit still: 0 = Not at all Becoming easily annoyed or irritable: 0 = Not at all Feeling afraid as if something awful might happen: 0 = Not at all Total TATYANA-7 score (0-4 normal; 5-9 mild; 10-14 moderate; 15-21 severe): 0 Source: Developed by Drs. Leandro Mckeon, Annie Mcnally, Aryan Clay and colleagues, with an educational hemanth from [employer]. Review of Systems Const Denies chills, Reports difficulty sleeping (mostly in staying asleep for more than a few hours), Denies fatigue, Denies fever(s) and Denies headache(s) ENT Denies dysphagia, Denies dizziness, Denies otalgia, Denies headache(s), Denies neck pain, Denies odynophagia and Denies sore throat Card Denies chest pain, Denies palpitations and Denies dyspnea Resp Denies cough and Denies dyspnea GI Denies abdominal pain, Denies constipation, Denies dysphagia, Denies heartburn, Denies diarrhea, Denies nausea, Denies odynophagia and Denies vomiting Denies difficulty voiding, Denies nocturia, Denies dysuria and Reports urinary urgency (at times) Musc Denies back pain and Denies neck pain Skin/Breast Denies rash Neuro Denies dizziness and Denies headache(s) Endo Denies fatigue and Denies palpitations Physical exam (Primary Care) Vital Signs: Last Vital Signs Pulse 81 09/28/24 10:19 BP 122/62 09/28/24 10:19 Pulse Ox 91 L 09/28/24 10:19 Oxygen Delivery Method Room Air 09/28/24 10:19 BMI result Body Mass Index 22.2 Tobacco/Smoking Status: Tobacco use Status Tobacco use date assessed 09/28/24 09/28/24 10:23 Patient Tobacco Use Status Never used Tobacco 09/28/24 10:23 e-Cigarette/Vaping Use Never Used 09/28/24 10:23 PHQ-9: PHQ-9 Score PHQ-9: Total score 0 09/28/24 10:23 Depression Screening Interpretation: Negative Thrive Assessment: Date of Thrive Assessment Date Thrive assessed 09/28/24 09/28/24 10:23 Currently or been in a relationship where the following occur: I choose not to answer Const General: no acute distress and alert HENMT Ears: TM normal on the left, EAC's normal (in the left ear), Abnormal EAC present excessive cerumen on the right and unable to visualize TM on the right (due to excessive cerumen) Throat: Yes posterior oropharynx normal and Yes tonsils normal (no TP congestion) Neck Neck: Yes supple and No lymphadenopathy Thyroid: Thyroid normal Resp Auscultation: clear to auscultation bilaterally, no rales and no wheezes Cardio Rate: regular rate Rhythm: regular rhythm Heart sounds: no murmurs GI Palpation (GI): Soft to palpation and nontender Auscultation: normal bowel sounds General: Yes no CVA tenderness Back/Spine/Pelvis Back: no CVA tenderness Thoracic/Lumbar Spine: No lumbar spinal tenderness Skin Rashes: no rashes Extrem General: Yes no clubbing, cyanosis or edema Coding Level of Care Code Est Pt Level 4 (61120) Diagnoses Overactive bladder N32.81 Excessive cerumen in right ear canal H61.21 Insomnia, unspecified type G47.00 Insomnia type: unspecified Additional Codes PHQ-9 - 43257 - PHQ-9 Billing: Yes ([id number]) Assessment & Plan Assessment & Plan (1) Overactive bladder: Code(s): N32.81 - Overactive bladder Category: Medical Plan: Patient has been tried on Oxybutynin in the past but states that she stopped taking the medication due to side effects (dry mouth, dizziness) States that she currently has no significant urinary issues and her symptoms are mostly mild and tolerable and she prefers not to take any Rx at this time (2) Excessive cerumen in right ear canal: Code(s): H61.21 - Impacted cerumen, right ear Category: Medical Plan: Have advised patient to start using OTC Debrox ear drops into her right ear BID for the next 7 days and instructed her on how to try to irrigate her ear on her own while in the shower daily If this does not help over the next few weeks and if her ear continues to bother her, she can call to schedule an appointment to have her ear flushed/irrigated at any time (3) Insomnia: Code(s): G47.00 - Insomnia, unspecified Category: Medical Qualifiers: Insomnia type: unspecified Qualified Code(s): G47.00 - Insomnia, unspecified Plan: Sleep hygiene discussed Patient is inquiring as to what natural remedies she can try to help her stay asleep longer than just a few hours Have advised that she can try some OTC Melatonin (3 or 5 mg tablets) or she can try more natural remedies like warm milk, chamomile tea or lavender She declined offer to start her on any Rx for sleep at this time, which is not unreasonable Plan Follow up in 6 months Will have patient get some follow up labs done just before she returns for her next follow up appointment in 6 months Orders: Orders Complete Blood Count Auto Diff 6 Months D64.9 - Anemia, unspecified Comprehensive Hood. Panel Fast 6 Months E78.00 - Pure hypercholesterolemia, unspecified TSH reflex Free T4 6 Months E78.00 - Pure hypercholesterolemia, unspecified Vitamin D 25-OH Total 6 Months E55.9 - Vitamin D deficiency, unspecified Lipid Panel 6 Months E78.00 - Pure hypercholesterolemia, unspecified UA CC w/rflx Micro + Cult 6 Months R30.0 - Dysuria Vitamin B12 and Folate 6 Months E53.8 - Deficiency of other specified B group vitamins
[2024-09-28 10:19] VITALS: BP 122/62; PULSE 81; O2SAT 91; BMI 22.2
--- OUTSIDE RECORDS SUMMARY | 2024-09-28 10:44 | XMS_ITS | Clinical Summary ---
Author Organization [employer] Address [address] [facility] [address] [place] [address] Care Team Providers Care Network Architect Name Role Phone Unavailable Primary Care Provider [...] - 1-dose 75+ series) 2017 COVID-19 Vaccine (1 - 2023-2 5 season) 2023 Influenza Vaccine (#1) 2024 HIB Vaccines Aged Out No longer eligi [...] patient's age to complete this topic Meningococcal B Vaccine Aged Out No l onger eligible based on patient's age to complete [...]
== END 2024-09-28 10:54 | disposition home or self-care (01) ==
LOC: HO.HMCH 10:10
PROVIDERS: PCP Internal Medicine; Visit Provider Internal Medicine
DX: N32.81 Overactive bladder (principal); H61.21 Impacted cerumen, right ear; G47.00 Insomnia, unspecified

== ENCOUNTER → 2024-09-28 10:10 | Outpatient (BNVA) | payer MEDICARE, SELFPAY | PROVIDERS: PCP Internal Medicine; Visit Provider Internal Medicine | DX: N32.81 Overactive bladder (principal); H61.21 Impacted cerumen, right ear; G47.00 Insomnia, unspecified; D64.9 Anemia, unspecified; E78.00 Pure hypercholesterolemia, unspecified; E55.9 Vitamin D deficiency, unspecified; R30.0 Dysuria; E53.8 Deficiency of other specified B group vitamins | CPT/HCPCS: 96127; 99212 ==

== ENCOUNTER 2024-09-28 11:04 | Outpatient (REF) | payer MEDICARE, SELFPAY | END 2024-09-28 11:05 | disposition home or self-care (01) | LOC: HO.HAP 11:04 | PROVIDERS: Visit Provider Internal Medicine | DX: Z13.89 Encounter for screening for other disorder (principal) ==

== ENCOUNTER 2024-10-13 13:38 | Outpatient (REF) | payer SELFPAY ==
--- OUTSIDE RECORDS SUMMARY | 2024-08-26 06:20 | XMS_ITS ---
Author Organization [facility] Address [address] [place] [address] Care Team Providers Care Ship Scraper Name Role Phone Scott Krueger MD Primary Care Provider Leandro Amaro [phone] REASON FOR VISIT constipation Encounters Encounter Location Date Provider Diagnosis [facility] [address] [place] [address] 08/26/2024 Leandro Navarro Plan Of Treatment No Information Progress Notes * ANDRES DÍAZB: 2 (84 yo F)Acc No.[id number]:08/26/2024 Progress Notes Patient: YOSEF YOUSSEFA Provider: Jarvis Navarro MD :1940 A ge:84 Y S ex:Female Date:08/26/2024 Address[address] [id number] Pcp:Scott Krueger MD Subjective: * Chief Complaints: * 1 . Constipation. * Medical History: Objective: * Vitals: Assessment: Plan: * Treatment: * * The named appointment provid er may or may not be the originator of this progress note, and it is not deemed complete until electronically signed by the appointment provider. Sign off status: Pending * Provider: Jarvis Navarro MD Date: 08/26/2024 Generated for Isabela brock/Alisson/eTransmitting on: 10/13/2024 02:32 PM EDT
--- OUTSIDE RECORDS SUMMARY | 2024-10-13 14:33 | XMS_ITS | Clinical Summary ---
Author Organization [employer] Address [address] [facility] [address] [place] [address] Care Team Providers Care Lead Web Developer Name Role Phone Unavailable Primary Care Provider [...]
== END 2024-10-13 13:39 | disposition home or self-care (01) ==
LOC: HO.HAP 13:38
PROVIDERS: Visit Provider Internal Medicine
DX: Z13.89 Encounter for screening for other disorder (principal)